=== PATIENT | male | born 1955 | race Caucasian/White ===

== ENCOUNTER → 2019-03-24 09:22 | Outpatient (CLI) | payer MEDICARE, BC ==
--- NOTE | ~2019-03-24 | ST ---
PATIENT:NITO COLEMAN MEDICAL RECORD: [id number] SEX: M LOCATION:[facility] ORDER #: ADMISSION DATE: 03/24/19 AGE OF PATIENT: 63 REFERRING PHYSICIAN: INTERPRETING PHYSICIAN: JOSEE ALVAREZ MD DATE OF SERVICE: 03/24/2019 Nuclear Stress Test INDICATIONS: Angina, abnormal ECG, shortness of breath, hypertension, and hyperlipidemia. He was exercised on standard Lexiscan protocol with 27 mCi of sestamibi injected at peak stress and 9 mCi was used previously for rest images. FINDINGS: Gated SPECT reveals a depressed ejection fraction at 39%. SPECT IMAGING: Cardiolite was used as myocardial fusion agent. There is reversibility laterally. This is in the basal, mid, apical, and lateral segments. The degree of reversibility is moderate to severe. The amount of myocardium involved is moderate. OVERALL IMPRESSION: This is an abnormal nuclear stress test and it falls in the intermediate high-risk category with a decreased ejection fraction at 39%, reversible ischemia, moderate to severe with a moderate amount of myocardium involved of the lateral wall. Because of a high likelihood of significant hemodynamically significant coronary artery disease, we would proceed with coronary angiography as a followup study. TRANSINT:[id number] Voice Confirmation ID: [id number] DOCUMENT ID: [id number] JOSEE ALVAREZ MD CC: [id number] DICTATION DATE: 03/25/1934 HOSPITAL NURSE LIAISON: 03/26/19 0123 [facility] CLI 03/24/19 [facility] [address] [place] [address]
== END | disposition home or self-care (01) ==
LOC: D.HCCARDIO 03-21 10:00
PROVIDERS: ATTEND Internal Medicine Interventional Cardiology
DX: I20.9 Angina pectoris, unspecified (principal)

== ENCOUNTER 2019-04-26 10:36 | Inpatient (IN) | payer MEDICARE, BC ==
[2019-04-26] VITALS (40 sets, daily range): BP systolic 93–165; BP diastolic 63–114; BMI 36.7; BMI 35.6
[~2019-04-26] VITALS: Ht 182.9 cm; Wt 116.2 kg
--- NOTE | ~2019-04-26 | HEMODYNAMI ---
PATIENT:NITO COLEMAN MEDICAL RECORD: [id number] : 51 LOCATION:[facility] ADMISSION DATE: 04/26/19 Generatedon:04/26/201914:07 Patient name: NITO COLEMAN Patient #: [id number] SSN: DO B: 1955 Date of study: 04/26/2019 Page: Of Hemodynamic Procedure Report Patient Data Patient Demographics Procedure consent was obtained First Name: NITO Gender: Male Last Name: [place] : 1955 Patient #: [id number] Age: 63 year(s) Race: Unknown Additional ID: [id number] Contact details Address: [address] [place] [address] [address] State: [place] City: [place] Zip code: [address] Past Medical History Allergies: No known allergies Admission Admission Data Admission Date: 04/26/2019 Admission Time: 10:36 Arrival Date: 04/26/2019 Arrival Time: 13:00 Admit Source: Other Insurance Payor: Medicare Height (in.): 71.65 BSA: 2.41 (m2) Height (cm.): 182 BMI: 36.83 (kg/m2) Weight (lbs.): 268.97 Weight (kg.): 122 Lab Results Lab Result Date: 04/26/2019 Lab Result Time: 0:00 Biochemistry Name Units Result Min Max BUN mg/dl 13 --(--*-)-- 7 18 Creatinine mg/dl 0.8 --(-*--)-- 0.6 1.3 CBC Name Units Result Min Max Hemoglobin g/dl 17.2 --(---*)-- 13.5 17.5 Procedure Procedure Types Cath Procedure Diagnostic Procedure C [facility] w/Coronaries Procedure Description Procedure Date Procedure Date: 04/26/2019 Procedure Start Time: 0:00 Procedure End Time: 13:58 Procedure Staff Name Function Louis Sr RT Scrub Aliyah Mi RT Monitor Scott Landaverde MD Performing Physician Cesar Horton RT Senior Technical Writer Jenna Lenin RN Nurse Procedure Data Cath Procedure Fluoroscopy Diagnostic fluoroscopy Total fluoroscopy Time: 1.6 time: 1.6 min min Diagnostic fluoroscopy Total fluoroscopy dose: 758 dose: 758 mGy mGy Contrast Material Contrast Material Type Amount (ml) Isovue 370 50 Entry Location Entry Primary Successful Side Size Upsize Upsize Entry Closure Terrazas ccessful Closure Location (Fr) 1 (Fr) 2 (Fr) Remarks Device Remarks Radial Right 6 Fr Mechanical artery Short Compression Estimated blood loss: 5 ml Diagnostic catheters Device Type Used For End Catheter Placement DIAGNOSTIC [place] 110cm 5 Multi-vessel Fr catheter ([id number]) Angiography Procedure Complications No complications Procedure Medications Medication Administration Route Dosage 0.9% NaCl I.V. 100 ml/hr Oxygen etCO2 Nasal cannula 2 l/min Lidocaine 2% added to field 20 Heparin Flush Bag added to field 2 bags (1000units/500ml NS) Radial Cocktail added to field 1 syringe (Verapamil 2mg/Nitro 400mcg/Heparin 1500units) Versed I.V. 2 mg Fentanyl I.V. 50 mcg Zofran I.V. 4 mg Hemodynamics Rest BSA: 2.41 (m2) HGB: 17.2 (g/dl) O2 Consumption: Estimated: 287.89 (ml/min) O2 Co nsumption indexed: Estimated:119.46 (ml/min/m) Heart Rate: 78 (bpm) Pressure Samples Time Site Value (mmHg) Purpose Heart Use Rate(bpm) 13:51 LV 132/11,10 Snapshot 86 13:51 LV 134/20,10 Snapshot 106 13:51 LV 124/21,17 Pullback 103 13:51 AO 161/161(142) Pullback 103 Gradients Valve Time Site 1 Site 2 Mean SEP/DFP Peak To Heart Use (mmHg) (sec/min) Peak Rate (mmHg) (bpm) Aortic 13:51 LV AO 0 103 124/21,17 161/161(142) Calculations Valve P-P Mean Valve Index Valve Source Name Gradient Area Flow (cm2) Aortic 0 0 Snapshots Pre Cath Intra NCS Post Cath Vital Signs Time Heart Resp SPO2 etCO2 NIBP (mmHg) Rhythm Pain Sedation Rate (ipm) (%) (mmHg) Status Level (bpm) 13:30:45 75 11 98 36.9 150/98(122) NSR 0 (11) 10(A) , No pain 13:35:03 70 14 96 35.4 141/98(126) NSR 0 (11) 10(A) , No pain 13:39:21 68 11 97 24.8 150/96(128) NSR 0 (11) 10(A) , No pain 13:43:44 75 13 98 36.9 153/106(129) NSR 0 (11) 10(A) , No pain 13:48:04 77 15 96 37.6 150/95(122) NSR 0 (11) 9(A) , No pain 13:52:15 84 14 97 33.1 139/97(115) NSR 0 (11) 9(A) , No pain 13:56:29 83 11 96 37.6 136/93(121) NSR 0 (11) 10(A) , No pain Medications Time Medication Route Dose Verified Delivered Reason Notes E ffectiveness by by 13:29:09 Zofran I.V. 4 mg Scott Jenna for nausea St Catracho Phelps MD RN 13:29:39 0.9% NaCl I.V. 100 Scott Jenna used for ml/hr Akhil Lenin procedure MD ADRIAN 13:29:47 Oxygen etCO2 2 l/min Scott Jenna used for Nasal Akhil Lenin procedure cannula MD ADRIAN 13:29:52 Lidocaine 2% added 20ml Scott Chavez for local to vial Akhil Akhil anesthetic field MD NGO 13:29:57 Heparin Flush added 2 bags Scott Chavez used for Bag to Raymond Akhil procedure (1000units/500ml field MD NGO NS) 13:30:05 Radial Cocktail added 1 Scott Chavez used for (Verapamil to syringe Akhil Akhil procedure 2mg/Nitro field MD NGO 400mcg/Hepari 13:43:38 Versed I.V. 2 mg Scott Jenna for AkhilCatracho Phelps sedation RN 13:43:50 Fentanyl I.V. 50 mcg Scott Salesyla for Akhil Lenin sedation recreation teacher Log Time Note 13:05:08 Diagnostic Cath Status : Elective 13:05:32 Cesar Horton RT(R) sent for patient. Start room use. 13:05:33 Time tracking: Regular hours (M-F 7:00 - 5:00) 13:05:37 Plan of Care:Hemodynamics will remain stable., Cardiac rhythm will remain stable., Comfort level will be maintained., Respiratory function will remain adequate., Patient/ family verbilizes understanding of procedure., Procedure tolerated without complication., Recovers from procedure without complications.. 13:07: Lab Result : Hemoglobin 17.2 g/dl : Lab Result : Creatinine 0.8 mg/dl : Lab Result : BUN 13 mg/dl 13:07:30 Admit Source: Other 13:07:35 Patient Height : 71.65 inches 13:07:39 Patient Weight : 268.97 lbs 13:07:49 Arrival Date: 04/26/2019 1:00:00 PM 13:07:55 Insurance Payor : Medicare 13:24:54 Signed procedure consent form obtained from patient. 13:25:26 Patient received from Pre/Post Procedure Room to CCL 2 Alert and oriented. Tansferred to table in Supine position. 13:25:27 Warm blankets applied, and clement hugger turned on for patient comfort. 13:25:28 ECG and BP/O2 sat monitors applied to patient. 13:25:28 Correct patient and procedure confirmed by team. 13:25:39 H&P Date Dictated: 04/12/2019 Within 30 days and on chart., H&P Addendum completed by physician on day of procedure. (MUST COMPLETE FOR ALL OUTPATIENTS). 13:25:55 Patient allergic to No known allergies 13:29:09 Zofran 4 mg I.V. was administered by Jenna Phelps RN; for nausea; 13:29:29 Vital chart was started 13:29:39 0.9% NaCl 100 ml/hr I.V. was administered by Jenna Phelps RN; used for procedure; 13:29:47 Oxygen 2 l/min etCO2 Nasal cannula was administered by Jenna Phelps RN; used for procedure; 13:29:52 Lidocaine 2% 20ml vial added to field was administered by Scott Landaverde MD; for local anesthetic; 13:29:57 Family in waiting room. 13:29:57 Heparin Flush Bag (1000units/500ml NS) 2 bags added to field was administered by Scott Landaverde MD; used for procedure; 13:29:59 Pre-procedure instructions explained to patient. 13:30:05 Pre-op teaching completed and patient verbalized understanding. 13:30:05 Radial Cocktail (Verapamil 2mg/Nitro 400mcg/Heparin 1500units) 1 syringe added to field was administered by Scott Landaverde MD; used for procedure; 13:30:12 Patient NPO since Midnight. 13:30:16 Is the patient allergic to Iodine/contrast media? No. 13:30:33 Is patient on blood thinner?No 13:30:46 ----Pre-sedation anethsthesia assessment.---- 13:32:56 Previous problem with sedation/anesthesia? No ? 13:32:58 Snore? Yes 13:32:59 Sleep apnea? No 13:33:00 Deviated septum? No 13:33:01 Sticks out tongue? Yes 13:33:01 Opens mouth fully? Yes 13:33:03 Airway obstruction? No ? 13:33:07 Dentures? Yes out 13:33:36 Pre procedure: right dorsailis pedis pulse 2+ Normal; easily identifiable; not easily obliterated 13:33:39 Pre procedure: left dorsailis pedis pulse 2+ Normal; easily identifiable; not easily obliterated 13:33:40 Patient pain scale 0/10 ?. 13:33:46 IV patent on arrival in left forearm with 0.9% NaCl at O. 13:33:48 Lab results completed and on chart. 13:42:16 Right Radial & Right Groin area was prepped with chlora-prep and draped in sterile fashion 13:42:17 Alarms reviewed by R. N. 13:42:18 Sharps counted by scrub and verified by R.N. 13:42:53 Physician arrived 13:42:54 Final Timeout: patient, procedure, and site verified with staff and physician. All members of the team are in agreement. 13:42:54 --------ALL STOP TIME OUT------ 13:42:58 Right Radial & Right Groin site verified by team. 13:43:02 Maximum allowable Isovue 370 dose 300ml. Physician notified. (300ml for normal creatinines. For patients with creatinine of 1.7 or higher multiply weight(kg) x 5 divided by creatinine.) 13:43:07 Fire Safety Assessment: A--An alcohol-based skin anteseptic being used preoperatively., C--Open oxygen or nitrous oxide is being used., D--An ESU, laser, or fiber-optic light is being used. 13:43:11 Physical assessment completed. ASA score P 2 - A patient with mild systemic disease as per Scott Landaverde MD. 13:43:14 Sedation plan: IV Moderate Sedation Medication:Versed, Fentanyl 13:43:38 Versed 2 mg I.V. was administered by Jenna Phelps RN; for sedation; 13:43:39 Use device set Radial Dx or PCI 13:43:41 Bag Decanter (2002S) opened to sterile field. 13:43:41 Medline Cath Pack ([id number]) opened to sterile field. 13:43:41 ACIST Syringe (27304) opened to sterile field. 13:43:42 ACIST Hand Control (12706) opened to sterile field. 13:43:42 DIAGNOSTIC WIRE .035 260cm J wire (009097) opened to sterile field. 13:43:43 Tegaderm 4 x 4 (1626W) opened to sterile field. 13:43:43 ACIST Manifold (82408) opened to sterile field. 13:43:44 MBrace Wrist Support ([id number]) opened to sterile field. 13:43:45 SHEATH 6FR Slender (68-3356) opened to sterile field. 13:43:50 Fentanyl 50 mcg I.V. was administered by Jenna Phelps RN; for sedation; 13:47:52 Full Disclosure recording started 13:47:52 Procedure started. 13:47:57 Local anesthetic to right radial artery with Lidocaine 2% by Scott Landaverde MD.INITIAL ACCESS ONLY 13:48:12 A 6 Fr Short sheath was inserted into the Right Radial artery 13:49:05 A DIAGNOSTIC [place] 110cm 5 Fr catheter (571700) was advanced over the wire and used for Multi-vessel Angiography. 13:49:11 Baseline sample Acquired. 13:49:16 Rhythm: sinus rhythm 13:51:23 LV hemodynamics recorded. 13:51:50 LV gram done using GALVAN 13:51:53 Injector settings: Ml/sec: 5, Volume: 15, 13:51:59 EF : 30 % 13:52:25 LCA angiography performed. 13:53:19 RCA angiography performed. 13:53:23 Injector settings: Ml/sec: 3, Volume: 6, 13:54:24 Catheter removed. 13:54:30 TR BAND Large ([id number]) opened to sterile field. 13:54:57 Sheath removed intact; hemostasis achieved with Mechanical Compression to the Right Radial artery. 13:55:45 Procedure ended.(Physican Out) 13:56:20 Fluoroscopy time 01.60 minutes. 13:56:24 Fluoroscopy dose: 758 mGy 13:56:24 Flurop Dose total: 758 13:56:28 Contrast amount:Isovue 370 50ml. 13:56:29 Sharps counted by scrub and verified by R.N. 13:56:36 TR band inflated with 12cc of air. 13:56:38 Insertion/operative site no bleeding no hematoma. 13:56:43 Post right radial artery:stable 13:56:46 Post Procedure Pulses reassessed and unchanged 13:56:49 Post procedure rhythm: unchanged. 13:56:51 Estimated blood loss: 5 ml 13:56:53 Patient needs reinforcement of post procedure teaching. 13:56:53 Post procedure instruction explained to patient.Patient verbalizes understanding. 13:56:59 Procedure and supply charges have been captured, reviewed, submitted and are correct. 13:57:04 Procedure Complication : No complications 13:58:06 Vital chart was stopped 13:58:07 See physician's report for complete and final results. 13:58:09 Report given to [facility]. 13:58:12 Patient transfered to [facility] with Stretcher. 13:58:15 Full Disclosure recording stopped 13:58:15 Procedure ended. 13:58:16 End room use (Document Last) Device Usage Item Name Manufacture Quantity Catalog Hospital Part Current Minimal Lot# / Number Charge Number Stock Stock Serial# Code ACIST Acist 1 24248 165781 102750 962022 20 Syringe Medical (04466) Systems Inc Medline Medline 1 [id number] 535263 95652 731163 5 Cath Pack ([id number]) Bag Microtek 1 147709 40140 516041 5 Decanter Medical Inc. () DIAGNOSTIC St Giovanni 1 274198 201082 464545 975490 30 WIRE .035 260cm J wire (966302) ACIST Hand Acist 1 75074 460761 276207 005592 5 Control Medical (72260) Systems Inc ACIST Acist 1 43901 630091 479012 519477 5 Manifold Medical (30480) Systems Inc Tegaderm 4 3M 1 1626W 186832 045967 667410 5 x 4 (1626W) MBrace Advanced 1 140-0250-00 736674 55743 785627 5 Wrist Vascular Support Dynamics ([id number]) SHEATH 6FR Terumo 1 [id number] 711278 750620 268167 5 Slender (80-1060) DIAGNOSTIC Terumo 1 40-7293 903765 081479 314145 5 [place] 110cm 5 Fr catheter (136132) TR BAND Terumo 1 [id number] 629880 663166 207300 40 Large (HAS15LHL) Signature Audit [place] Stage Time Signature Unsigned Intra-Procedure 04/26/2019 Aliyah Mi 2:07:01 PM RT(R) Signatures Monitor : Aliyah Mi RT Signature : Date : Time : [facility] [address] [facility] [place] [address]
[2019-04-26] MEDS ORDERED: VALIUM10 MG PO (10:50)
[2019-04-26] MEDS ORDERED: LOTREL 5/10 MG1 CAP PO (10:51)
[2019-04-26] MEDS ORDERED: PROTONIX40 MG PO (10:51)
[2019-04-26] MEDS ORDERED: STELARA SQ (10:53)
[2019-04-26] MEDS ORDERED: BETAPACE 80 MG80 MG PO (10:53)
[2019-04-26 11:24] LABS: BASOPHILS 0.4 % (0-2); EOSINOPHILS 4.2 % (0-7); HEMATOCRIT 49.5 % (42.0-54.0); HEMOGLOBIN 17.2 g/dL (13.5-17.5); IMMATURE GRANULOCYTES 0.5 % (0-5); LYMPHOCYTES 18.4 % (15-50); MCH 31.7 pg (26.0-34.0); MCHC 34.7 g/dL (31.0-37.0); MCV 91.2 fL (80.0-100.0); MEAN PLATELET VOLUME 10.6 fL (7.4-10.4); MONOCYTES 8.6 % (2-11); NEUTROPHILS 67.9 % (40-80); PLATELET COUNT 251 10x3/uL (130-400); RBC 5.43 10x6/uL (4.20-6.10); RDW 13.5 % (11.5-14.5); WBC 10.2 10x3/uL (4.8-10.8)
[2019-04-26 11:38] LABS: CALC OSMOLALITY 276 mosm/kg (275-300); CALCIUM 8.6 mg/dL (8.5-10.1); CARBON DIOXIDE 28.3 mmol/L (21.0-32.0); CHLORIDE - SERUM 102 mmol/L (98-107); CREATININE - SERUM 0.8 mg/dL (0.6-1.3); GLUCOSE 108 mg/dL (74-106); POTASSIUM - SERUM 4.5 mmol/L (3.5-5.1); SODIUM 138 mmol/L (136-145); UREA NITROGEN 13 mg/dL (7-18); eGFR NON AFRICAN AMERICAN > 90 mL/min (90-120)
--- NOTE | 2019-04-26 14:17 | NUR ---
PATIENT ARRIVED TO ROOM 5. PATIENT PUT ON CM, ON 2L NC. NO C/O PAIN, NUMBNESS, OR TINGLING. WILL CONTINUE TO MONITOR. PHYSICIAN PREVIOUSLY AT BEDSIDE TO UPDATE EX- WHO ACCOMPANIED PATIENT TODAY.
--- NOTE | 2019-04-26 14:30 | NUR ---
PATIENT AWAKE, DR. HERR AT BEDSIDE DISCUSSING SURGICAL OPTIONS WITH PATIENT AND EX-. ELEVATED BLOOD PRESSURE NOTED BY PHYSICIAN, WILL NOT TREAT AT THIS TIME. RIGHT TR BAND IN PLACE, NO S/S OF BLEEDING OR HEMATOMA NOTED. WILL CONTINUE TO MONITOR.
--- NOTE | 2019-04-26 14:59 | NUR ---
PT'S BP 165/104. NITRO (50MG/250ML) STARTED TO LEFT WRIST PIV AT 3CC/HR PER DR. HERR. PT TOLERATING WELL. FRIEND AT BEDSIDE. WAITING ON ROOM TO BE CLEANED AND PT MOVED TO [facility].
--- NOTE | 2019-04-26 15:00 | NUR ---
NEW PERIPHERAL 20G IV STARTED IN RIGHT FOREARM. RIGHT TR BAND IN PLACE, NO S/S OF BLEEDING OR HEMATOMA. CONTINUING TO MONITOR VITAL SIGNS, HR 76, NIBP 168/109, SPO2 98% ON 2L NC, RR OF 13.
--- NOTE | 2019-04-26 15:30 | NUR ---
PT ARRIVED IN THE UNIT. HOOKED TO ICU MONITORS. VSS AT THIS TIME. NITRO TITRATED PER ORDERS. TR BAND NOTED TO RIGHT RADIAL. NO S/SX OF HEMATOMA NOTED. CALL LIGHT IN REACH. WILL CONT POC.
[2019-04-26 16:08] LABS: BASOPHILS 0.4 % (0-2); EOSINOPHILS 3.8 % (0-7); HEMOGLOBIN 16.5 g/dL (13.5-17.5); IMMATURE GRANULOCYTES 0.4 % (0-5); LYMPHOCYTES 20.4 % (15-50); MCHC 33.7 g/dL (31.0-37.0); MCV 92.1 fL (80.0-100.0); MEAN PLATELET VOLUME 10.4 fL (7.4-10.4); MONOCYTES 7.9 % (2-11); NEUTROPHILS 67.1 % (40-80); PLATELET COUNT 216 10x3/uL (130-400); RBC 5.32 10x6/uL (4.20-6.10); RDW 13.5 % (11.5-14.5); WBC 10.4 10x3/uL (4.8-10.8)
[2019-04-26 16:21] LABS: INR 1.12 (0.85-1.17); PROTIME 13.9 SECONDS (11.6-15.0)
[2019-04-26 16:41] LABS: PHOSPHOROUS 2.6 mg/dL (2.5-4.9); T4 THYROXIN - FREE 0.97 ng/dL (0.76-1.46); THYROID STIMULATING HORMONE 1.67 uIU/mL (0.36-3.74); URIC ACID 6.8 mg/dL (2.6-7.2)
--- NOTE | 2019-04-26 16:48 | NUR ---
PT DENIES QUESTIONS, SIGNED CONSENTS FOR TOMORROWS PROCEDURE
[2019-04-26 17:33] LABS: ALBUMIN 3.4 g/dL (3.4-5.0); ALKALINE PHOSPHATASE 64 U/L (46-116); ALT (SGPT) 31 U/L (10-68); BILIRUBIN - TOTAL 0.56 mg/dL (0.2-1.3); CALC OSMOLALITY 278 mosm/kg (275-300); CALCIUM 8.3 mg/dL (8.5-10.1); CARBON DIOXIDE 25.5 mmol/L (21.0-32.0); CHLORIDE - SERUM 103 mmol/L (98-107); CREATININE - SERUM 0.7 mg/dL (0.6-1.3); GLUCOSE 94 mg/dL (74-106); POTASSIUM - SERUM 4.5 mmol/L (3.5-5.1); SODIUM 140 mmol/L (136-145); UREA NITROGEN 12 mg/dL (7-18); eGFR NON AFRICAN AMERICAN > 90 mL/min (90-120)
--- NOTE | 2019-04-26 18:45 | NUR ---
DR HERR CALLED AND NOTIFIED ABOUT CAROTID ULTRASOUND. NO N.O. WILL CONT POC.
--- NOTE | 2019-04-26 19:14 | NUR ---
BEDSIDE SHIFT REPORT GIVEN BY DEPARTING RN. AAOX4. 2L NC. LEFT WRIST PIV AND RT FA PIV INFUSING MD ORDERED MEDS PATENTLY. 1ST DEGREE HEART BLOCK NOTED.DENIES ANY NEEDS AT THIS TIME. USES URINAL WITHOUT DIFFICULTY. ASSESSMENT COMPLETE. SEE FLOWSHEET FOR DETAILS.
--- NOTE | 2019-04-26 19:39 | MORECARE ---
CASE MANAGEMENT DISCHARGE SUMMARY PATIENT: NITO COLEMAN UNIT: [id number] ADM DATE: 04/26/19 AGE: 63 : 53 SEX: M [facility] AUTHOR: CHEO CAMACHO PHYSICIAN: REFERRING PHYSICIAN: TRENT RIOJAS MD DATE OF SERVICE: 04/26/19 Discharge Plan Patient Name: NITO COLEMAN [facility] [facility] 1955 Planned Disposition: Home Anticipated Discharge Date: Discharge Date: Expected LOS: Initial Reviewer: [email or web address] Initial Review Date: 04/26/2019 Generated: 04/26/19 8:39 pm DCPIA - Discharge Planning Initial Assessment Updated by [email or web address]: Catherine Anguiano on 04/26/19 7:38 pm * Is the patient Alert and Oriented? Yes * How many steps to enter\exit or inside your home? * PCP [facility] * Pharmacy [facility] * Preadmission Environment Home Alone * ADLs Independent * Other Equipment B/P monitor Patient Name: NITO COLEMAN Page 10159 at 1939 All edits/amendments must be made on the electronic document DICTATION DATE: 04/26/191938 AUTOMATED LOGISTICS SPECIALIST: PONCHO 04/26/191938 RPT#: [id number] DC DATE: STATUS: ADM IN [facility] [address] [place] [address] END OF REPORT
--- NOTE | 2019-04-26 19:46 | MORECARE ---
CASE MANAGEMENT DISCHARGE SUMMARY PATIENT: NITO BONDS UNIT: [id number] ADM DATE: 04/26/19 AGE: 63 : 53 SEX: M ROOM/BED: D[facility] AUTHOR: JANICE,DOC PHYSICIAN: REFERRING PHYSICIAN: TRENT RIOJAS MD DATE OF SERVICE: 04/26/19 Discharge Plan Patient Name: NITO BONDS [facility] [facility] 1955 Planned Disposition: Home Anticipated Discharge Date: Discharge Date: Expected LOS: Initial Reviewer: [email or web address] Initial Review Date: 04/26/2019 Generated: 04/26/19 8:45 pm Comments DCP- Discharge Planning Updated by [email or web address]: Catherine Anguiano on 04/26/19 6:[address] Patient Name: NITO BONDS Admission Status: Elective Accout number: [id number] Admission Date: 04-26-2019 : 1955 Admission Diagnosis: Attending: TRENT RIOJAS Current LOS: 1 Anticipated DC Date: Planned Disposition: Home Primary Insurance: MEDICARE A & B Discharge Planning Comments: CM met with patient at bedside after explaining CM role and obtaining verbal consent. Patient lives at home alone and plans to return there upon discharge. CM discussed availability / needs of home health and medical equipment. Patient denies any discharge needs at this time. Patient states he will have his drive him home upon discharge. CM will continue to follow and assist as needed with discharge planning / needs. Patients Transporter: Catherine Anguiano DCPIA - Discharge Planning Initial Assessment Updated by [email or web address]: Catherine Anguiano on 04/26/19 7:40 pm * Is the patient Alert and Oriented? Yes * How many steps to enter\exit or inside your home? * PCP Yvonne [facility] [place] [facility] * Pharmacy [facility] * Preadmission Environment Home Alone * ADLs Independent * Other Equipment B/P monitor * List name and contact numbers for known caregivers / representatives who currently or will assist patient after discharge: Carrie Bonds - ex-- [phone] * Verbal permission to speak to the caregivers and representatives has been obtained from the patient. N/A * Community resources currently utilized None * Additional services required to return to the preadmission environment? No * Can the patient safely return to the preadmission environment? Yes * Has this patient been hospitalized within the prior 30 days at any hospital? No Last DP export: 04/26/19 6:39 p Patient Name: NITO BONDS Page 27637 at 1948 All edits/amendments must be made on the electronic document DICTATION DATE: 04/26/191944 SCREEN CUTTER AND TRIMMER: PONCHO 04/26/191944 RPT#: [id number] DC DATE: STATUS: ADM IN [facility] [address] [place] [address] END OF REPORT
--- NOTE | 2019-04-26 21:15 | NUR ---
PHONED DR. HERR TO VERIFY ORDERS. INFORMED OF PT HEADACHE OF 05/25. ORDERS RECEIVED, VERIFIED, AND READ BACK. SEE MAR FOR DETAILS.
--- NOTE | 2019-04-26 21:47 | NUR ---
HS MEDS GIVEN. PRN PAIN MED GIVEN. SEE MAR FOR DETAILS. FAMILY REMAINS AT BEDSIDE. ALL QUESTIONS ANSWERED.
--- NOTE | 2019-04-26 23:12 | NUR ---
REASSESSMENT COMPLETE. NO NEW CHANGES IN PT CONDITION. ASLEEP SHOWING NO SS OF DISTRESS. VSS. CONTINUING TO TITRATE NITRO DRIP. SEE DRIP FLOWSHEET FOR DETAILS. REPOSITIONS SELF. DENIES ANY PAIN OR NEEDS AT THIS TIME. SAFETY MEASURES IN PLACE. CBIR.
--- NOTE | 2019-04-26 23:58 | NUR ---
NITRO DRIP OFF: BP 135/81 SEE IV DRIP FLOWSHEET FOR FULL DETAILS.
[2019-04-27] VITALS (40 sets, daily range): BP systolic 90–165; BP diastolic 55–99; BMI 35.3
[2019-04-27 00:52] LABS: HEMATOCRIT 45.5 % (42.0-54.0); HEMOGLOBIN 15.3 g/dL (13.5-17.5); MCH 30.8 pg (26.0-34.0); MCHC 33.6 g/dL (31.0-37.0); MCV 91.5 fL (80.0-100.0); MEAN PLATELET VOLUME 10.7 fL (7.4-10.4); RBC 4.97 10x6/uL (4.20-6.10); RDW 13.6 % (11.5-14.5); WBC 10.3 10x3/uL (4.8-10.8)
--- NOTE | 2019-04-27 01:11 | NUR ---
ASLEEP SNORING SOFTLY. NO SS OF DISTRESS. VS REMAIN STABLE. SAFETY MEASURES IN PLACE. CBIR.
--- NOTE | 2019-04-27 03:36 | NUR ---
REASSESSMENT COMPLETE. NO CHANGES NOTED IN PT CONDITION. VSS.
--- NOTE | 2019-04-27 04:35 | NUR ---
HCG BATH GIVEN. LINENS CHANGED. TOLERATED WELL.
--- NOTE | 2019-04-27 17:34 | NUR ---
1535 PT ARRIVED TO ROOM SEDATED FROM SURGERY ETT SECURED AND PLACED ON VENT BY RT, R IJ CVL DRESSING CDI WITH AMIO,PLASMALYTE AND NITRO INFUSING, ZINACEF INITIATED, MIDSTERNAL AND SUBSTERNAL DRESSINGS CDI WITH SUBSTERNAL TPM DDD80, CTX2 20CM SUCTION NO AIR LEAK, BLOODY DRAINAGE, JESS DRAIN COMPRESSED WITH BLOODY DRAINAGE, L GROIN A LINE WITH DRESSING CDI, R RADIAL A LINE DRESSING CDI, BOTH ZEROED WITH GOOD WAVEFORM, CRITICORE MOLINA DRAINING YELLOW URINE, LEATHA/SCD ON LLE, COBAN GROIN TO ANKLE LLE, PULSES PALPABLE AND DOPPLERED 1645 L GROIN A LINE SHEATH REMOVED PER ORDERS FROM DR HERR, TIP INTACT, REMOVED PER PROTOCOL, PULSES DOPPLERED EASILY 1730 DR HERR NOTIFIED OF ABGS AFTER 15MIN ON 80% FIO2.
--- NOTE | 2019-04-27 19:00 | NUR ---
PT INTUBATED, CLEAR/DIMINISHED LUNG SOUNDS. SPO2 95 ON 40%. OPENS EYES, FOLLOWS SOME COMMANDS. HARD OF HEARING, SON HAS HEARING AIDS IN HIS POSSESSION, STATES HE WILL BRING THEM DURING THE NEXT VISITATION. S1S2 HEARD, PERIPHERAL PULSES PRESENT. CHEST DRSGS CDI, CT INTACT, JESS DRAIN INTACT AND COMPRESSED. HEELS BRIDGED. VSS, WILL CONTINUE 1:1 NURSING CARE.
[2019-04-27 20:35] LABS: APPEARANCE CLEAR (CLEAR); BILIRUBIN NEGATIVE (NEGATIVE); COLOR YELLOW (YELLOW); GLUCOSE NEGATIVE (NEGATIVE); KETONE SMALL mg/dL (NEGATIVE); NITRITE NEGATIVE (NEGATIVE); PROTEIN NEGATIVE (NEGATIVE); UROBILINOGEN NORMAL (NORMAL)
--- NOTE | 2019-04-27 21:00 | NUR ---
FAMILY AT BEDSIDE, UPDATE PROVIDED AND QUESTIONS ANSWERED. SON BROUGHT PT HEARING AIDS. HEARING AIDS PLACED ON PT. PT TEACHING PROVIDED ON VENT, RESTRATINTS, AND PAIN MEDICATION AT THIS TIME. VSS, CONTINUE 1:1 NURSING CARE.
--- NOTE | 2019-04-27 21:11 | NUR ---
ABG RESULTS AND UPDATE GIVEN TO DR. HERR, ORDERS REC'D TO EXTUBATE AND PLACE ON BIPAP, RT NOTIFIED.
--- NOTE | 2019-04-27 21:34 | NUR ---
PT EXTUBATED AT THIS TIME AND PLACED ON BIPAP AT 65%, SPO2 92. RESTRAINTS DISCONTINUED. ORAL CARE PROVIDED. PT REPOSITIONED FOR COMFORT. AOX4. VSS.
--- NOTE | 2019-04-27 22:00 | NUR ---
PT AGITATED THAT HIS HEARING AIDS WERE NOT IN POST OP WHILE HE WAS INTUBATED, MAKING COMMUNICATION DIFFICULT. EXPLAINED TO PT THAT HIS SON TOOK HIS HEARING AIDS AND DID NOT BRING THEM BACK UNTIL 2099.
[2019-04-28] VITALS (99 sets, daily range): BP systolic 112–170; BP diastolic 66–96
--- NOTE | 2019-04-28 01:30 | NUR ---
VSS, DANGLED AT BEDSIDE PER ORDERS. RT AT BEDSIDE. WEAK COUGH, WHILE UP AT BEDSIDE, PT BECAME SOB, SPO2 86. PT POSITIONED BACK IN BED, HOB @ 40 DEGREES, BIPAP ON AND AT 100%, ENCOURAGED TO DEEP BREATHE, SPO2 94.
--- NOTE | 2019-04-28 01:45 | NUR ---
BIPAP ON AT 70%, SPO2 92. LUNG SOUNDS CLEAR/DIMINISHED. PT REPOSITIONED FOR COMFORT. DENIES NEEDS. CALL LIGHT WITHIN PT REACH, ROOM VISIBLE FROM NURSES STATION.
--- NOTE | 2019-04-28 02:03 | NUR ---
PT C/O PAIN 06/25, REQUESTING PRN PERCOCET. AOX4, TOLERATES MEDS WELL. VSS, SPO2 93 AT THIS TIME.
--- NOTE | 2019-04-28 03:00 | NUR ---
REASSESSMENT COMPLETE, SEE FLOWSHEET. PT REPOSITIONED FOR COMFORT. RESTING COMFORTABLY AT THIS TIME. AOX4, DENIES NEEDS. CPOC
[2019-04-28 05:09] LABS: HEMATOCRIT 42.6 % (42.0-54.0); HEMOGLOBIN 14.3 g/dL (13.5-17.5); MCH 30.7 pg (26.0-34.0); MCHC 33.6 g/dL (31.0-37.0); MCV 91.4 fL (80.0-100.0); MEAN PLATELET VOLUME 10.9 fL (7.4-10.4); RBC 4.66 10x6/uL (4.20-6.10); RDW 13.9 % (11.5-14.5)
[2019-04-28 05:37] LABS: WBC 19.1 10x3/uL (4.8-10.8)
--- NOTE | 2019-04-28 06:00 | NUR ---
PT UP TO CHAIR, COMPLETE LINEN CHANGE PROVIDED. BIPAP ON AT 80%, SPO2 92. AOX4, STATES HE IS COMFORTABLE IN CHAIR AND HIS PAIN IS DECREASING. VSS. CALL LIGHT AND BEDSIDE TABLE WITHIN PT REACH. CPOC.
[2019-04-28 07:18] LABS: ALBUMIN 3.1 g/dL (3.4-5.0); ALKALINE PHOSPHATASE 43 U/L (46-116); ALT (SGPT) 30 U/L (10-68); BILIRUBIN - TOTAL 0.49 mg/dL (0.2-1.3); CALC OSMOLALITY 280 mosm/kg (275-300); CALCIUM 7.6 mg/dL (8.5-10.1); CARBON DIOXIDE 27.2 mmol/L (21.0-32.0); CHLORIDE - SERUM 104 mmol/L (98-107); CREATININE - SERUM 0.9 mg/dL (0.6-1.3); GLUCOSE 158 mg/dL (74-106); POTASSIUM - SERUM 4.3 mmol/L (3.5-5.1); PROTEIN - SERUM 6.1 g/dL (6.4-8.2); SODIUM 139 mmol/L (136-145); UREA NITROGEN 12 mg/dL (7-18); eGFR NON AFRICAN AMERICAN 90 mL/min (90-120)
--- NOTE | 2019-04-28 07:20 | NUR ---
CORNELIA RECEIVED. PT UP IN CHAIR. ASSESSMENT COMPLETE. PT ON BIPAP AT 80% AT THIS TIME. REQUESTED HIS LEFT HEARING AID PUT IN (ALREADY HAD RIGHT ONE IN).
--- NOTE | 2019-04-28 10:26 | OP ---
PATIENT NAME: NITO COLEMAN MEDICAL RECORD: [id number] :51 LOCATION:[facility] ADMISSION DATE:04/26/19 SURGEON: TRENT RIOJAS MD DATE OF OPERATION: 04/26/2019 PROCEDURE: Left heart catheterization, selective coronary angiography, right radial approach. CATHETERS: Radial sheath, [place] catheter. The procedure was well tolerated. The patient returned to [place]. Sheath removed. TR band was placed. FINDINGS: Left ventriculography in 30-degree GALVAN view shows global hypokinesis, EF reduced at 30% to 35%. CORONARY ANATOMY: LEFT MAIN: Left main has about an 80% tubular stenosis before takeoff of the LAD diagonal. LAD: The LAD appears to be good target distally. CIRCUMFLEX: Moderate-sized circumflex with good target distally. There is a PD that is totally occluded off the right coronary that may be a graftable vessel. The posterior lateral branch off the right coronary artery appears to be good target distally. IMPRESSION: Severe 3-vessel disease including left main disease, mildly decreased LV function, probably best suited for coronary bypass grafting at this point. TRANSINT:[id number] Voice Confirmation ID: [id number] DOCUMENT ID: [id number] TRENT RIOJAS MD at 1026 CC: [id number] DICTATION DATE: 04/26/19 1404 PROJECTS MANAGER: 04/26/19 1536 ADM IN [facility] [address] [place] [address]
--- NOTE | 2019-04-28 11:50 | OP ---
PATIENT NAME: NITO COLEMAN MEDICAL RECORD: [id number] :53 LOCATION:[facility] DM[facility] Isabel[facility]08 ADMISSION DATE:04/26/19 SURGEON: ANKUR HERR MD DATE OF OPERATION: 04/27/2019 SURGEON: Ankur Herr MD FLAT KNITTER: Zion [employer] PROCEDURES PERFORMED: 1. Urgent coronary artery bypass graft times 3 (left internal mammary to LAD, reverse saphenous vein graft from aorta to obtuse marginal and aorta to right coronary artery beyond bifurcation). 2. Pulmonary vein radiofrequency ablation. 3. Left atrial appendage closure device. PREOPERATIVE DISEASE: Coronary artery disease including left main coronary artery stenosis and atrial fibrillation. POSTOPERATIVE DIAGNOSIS: Coronary artery disease including left main coronary artery stenosis and atrial fibrillation. ANESTHESIA: General endotracheal anesthesia. ESTIMATED BLOOD LOSS: Total cardiopulmonary bypass with Cell Saver retransfusion. COMPLICATIONS: None. SPECIMENS: None. CONDITION: Stable. DISPOSITION: CV ICU. OPERATIVE FINDINGS: 1. Transesophageal echocardiography confirmed no significant valvular stenosis or insufficiency, left ventricular hypertrophy and normal left ventricular contractility. No change after separation from cardiopulmonary bypass. 2. Significant varicosities in the vein from the right mid and upper thigh harvested endoscopically. Therefore, bridging incisions were made in the lower leg with a good segment of vein used for the right graft and a short slightly varicose section used for the circumflex graft. 3. Good quality left internal mammary artery. 4. Large fatty heart. 5. Severe distal disease in all vessels with anastomosis essentially in the soft spot, but with plaque. 6. LAD 1.75 mm. 7. Obtuse marginal 1.75 mm. 8. Right coronary artery beyond the bifurcation 2.0 mm. 9. AtriCure radiofrequency ablation of the pulmonary veins and the right atrium, due to the large heart size, it was elected not to perform the interatrial portion of the procedure. 10. Application of a left atrial appendage closure device. OPERATIVE REPORT [id number] NITO COLEMAN INDICATIONS: Coronary artery disease with left main coronary stenosis and atrial fibrillation. OPERATIVE SUMMARY IN DETAIL: The patient was brought to the operating suite. General anesthesia obtained. The patient was prepped and draped. Greater saphenous vein was harvested in the right leg, first with endoscopic technique. Side branches were divided with electrocautery. The vessels ligated proximally and distally and removed. Side branches were tied and leakage sites were oversewn. Significant varicosities were encountered. Bridging incisions were then made to remove the vein from the remainder of the right lower extremity. Side branches were clipped. Vessel was ligated proximally and distally and removed. Side branches were tied or oversewn and thin sites were oversewn. Later, the leg was irrigated and closed in 2 layers. Median sternotomy incision was made. Subcutaneous tissue divided with electrocautery. The sternum was divided with a saw. Left hemisternum was elevated. Left pleural cavity was entered. Left internal mammary artery and vein was taken down as a pedicle graft. Sternal retractor was placed. Pericardium was opened. Heparin was given. The aorta was cannulated. Dual stage venous cannula was inserted. The internal mammary was clipped distally and made ready for anastomosis. An activated clotting time was appropriately elevated. The patient placed on cardiopulmonary bypass. Sites for distal anastomosis were selected. A pursestring incision was made in the right atrium and the radiofrequency ablation device was used for the right atrial portion of the radiofrequency ablation and the retrograde cardioplegia cannula inserted. Antegrade cardioplegic cannula was inserted. The patient's temperature was allowed to drift downward to 34 degrees. Crossclamp was placed and cardioplegia was given antegrade and retrograde. Antegrade cardioplegia was repeated at about 50 minutes during the cross-clamp time including down the completed vein grafts. The pulmonary veins were encircled on each side and a radiofrequency ablation was performed. The left atrial appendage was a widely based 50 mm appendage and it was occluded with the occlusion device. Distal anastomoses were then performed in standard technique. Proximal anastomosis with single cross-clamp technique. The cross clamp removed. Proximal and distal anastomotic sites inspected for bleeding. Atrial and ventricular pacing wires were placed. The patient was paced and fully rewarm weaned from cardiopulmonary and was stable. The patient was decannulated. The cannula sites were oversewn. Protamine was given. The graft lay appropriately. Thorough irrigation was undertaken. Hemostasis was ensured. Drains were placed in the mediastinum and left pleural cavity. The Pericardial fat was loosely reapproximated in the midline. The left chest was evacuated and irrigated. The internal mammary harvest site was inspected for bleeding. Sternum was closed with wires. Fascia for the subcutaneous tissue was closed. Skin was closed. Dermabond was placed. The needle and sponge counts reported correct. The patient was taken to ICU in stable condition. TRANSINT:[id number] Voice Confirmation ID: [id number] DOCUMENT ID: [id number] OPERATIVE REPORT [id number] NITO COLEMAN DANIEL W MD at 1150 CC: TRENT RIOJAS MD [id number] DICTATION DATE: 04/27/19 1602 BILLET HEATER: 04/28/19 0202 ADM IN [place] [id number] [place] [address]
--- NOTE | 2019-04-28 12:54 | NUR ---
PT STOOD UP AND LARGE PINK EGGCRATE CUSHION PLACED IN CHAIR FOR HIM TO SIT ON. HELPED HIM TO POSITION FOR COMFORT. REMOVED BIPAP MASK AND GAVE WATER. OFFERED JELLO, PT DECLINED. CALL LIGHT IN REACH.
--- NOTE | 2019-04-28 13:44 | NUR ---
PT BIPAP REMOVED. MEDICATIONS GIVEN. WATER OFFERED. ED AGAIN OFFERED, DECLINED SAYING WOULD WAIT A WHILE. HI-FLOW NC AT 15L STARTED BY Rick
--- NOTE | 2019-04-28 17:00 | NUR ---
PT CHEST TUBES HAVE BEEN PULLED. TPM WIRES COILED. DR HERR REQUESTS MOLINA CATHETER TO REMAIN AT THIS TIME.
--- NOTE | 2019-04-28 18:10 | NUR ---
LEG DRESSING REMOVED. NO DRESSING APPLIED SINCE NO DRAINAGE NOTED. LEATHA HOSE PLACED. CHG BATH PROVIDED. MOLINA CARE PROVIDED. PT ON BIPAP. HEARING AIDS PLACED IN CONTAINER ON BEDSIDE TABLE WITH PT LABEL.
--- NOTE | 2019-04-28 19:43 | NUR ---
BEDSIDE SHIFT REPORT GIVEN BY DEPARTING RN. PT LAYING IN BED ASLEEP. BIPAP ON. RT IJ NOTED AND INFUSING PATENTLY. AAOX4. PERRLA. ASSESSMENT COMPLETE. VSS ON NITRO DRIP. SEE TITRATION DRIP FLOWSHEET FOR DETAILS. SAFETY MEASURES IN PLACE. CBIR.
--- NOTE | 2019-04-28 19:55 | NUR ---
HS MEDS GIVEN. SWALLOWED WITHOUT DIFFICULTY.
--- NOTE | 2019-04-28 23:03 | NUR ---
USED CALL LIGHT TO ALERT NURSE. PT VERY ANXIOUS SAYING "I NEED SOMEONE TO EXPLAIN TO ME WHAT IN THE HELL IS GOING ON. I NEED TO TALK TO A DOCTOR. I NEED YOU TO TELL MY WHY THIS MASK IS ON MY FACE. I FEEL LIKE I AM BEING KIDNAPPED!! I'M JUST GLAD YA'LL DON'T HAVE ME HOG TIED ANYMORE!!!" ANSWERED ALL QUESTIONS. SIGN PLACED IN ROOM AND ON DOOR REGARDING PT HEARING DIFFICULTIES TO ALERT ALL STAFF WHO ENTER. TALKED WITH PT AT GREAT LENGTH OF TIME TO EASE ANXIETY. C/O PAIN 05/25. ASSESSMENT COMPLETE. CBIR. SEE MAR AND ASSESSMENT FLOWSHEET FOR DETAILS.
[2019-04-29] VITALS (64 sets, daily range): BP systolic 107–157; BP diastolic 70–98
--- NOTE | 2019-04-29 00:15 | NUR ---
ALERTED NURSE USING CALL LIGHT. REQUESTED FAN. ACCOMMODATED. FSBG COMPLETE. SEE FLOWSHEET FOR DETAILS.
[2019-04-29 00:36] LABS: HEMATOCRIT 37.5 % (42.0-54.0); HEMOGLOBIN 12.7 g/dL (13.5-17.5); MCH 31.6 pg (26.0-34.0); MCHC 33.9 g/dL (31.0-37.0); MCV 93.3 fL (80.0-100.0); MEAN PLATELET VOLUME 10.3 fL (7.4-10.4); RBC 4.02 10x6/uL (4.20-6.10); WBC 16.9 10x3/uL (4.8-10.8)
--- NOTE | 2019-04-29 03:15 | NUR ---
REASSESSMENT COMPLETE. NO NEW CHANGES IN PT CONDITION. ASLEEP SHOWING NO SS OF DISTRESS.
[2019-04-29 04:42] LABS: BASOPHILS 0.1 % (0-2); EOSINOPHILS 0.1 % (0-7); HEMATOCRIT 38.7 % (42.0-54.0); HEMOGLOBIN 12.9 g/dL (13.5-17.5); IMMATURE GRANULOCYTES 0.6 % (0-5); LYMPHOCYTES 8.2 % (15-50); MCHC 33.3 g/dL (31.0-37.0); MEAN PLATELET VOLUME 10.8 fL (7.4-10.4); MONOCYTES 12.5 % (2-11); NEUTROPHILS 78.5 % (40-80); PLATELET COUNT 136 10x3/uL (130-400); RBC 4.16 10x6/uL (4.20-6.10); RDW 14.2 % (11.5-14.5); WBC 18.7 10x3/uL (4.8-10.8)
--- NOTE | 2019-04-29 04:51 | NUR ---
PRN PAIN MED GIVEN. SEE MAR FOR DETAILS.
[2019-04-29 05:07] LABS: ALBUMIN 2.8 g/dL (3.4-5.0); ALKALINE PHOSPHATASE 41 U/L (46-116); ALT (SGPT) 28 U/L (10-68); BILIRUBIN - TOTAL 0.89 mg/dL (0.2-1.3); CALC OSMOLALITY 276 mosm/kg (275-300); CALCIUM 7.7 mg/dL (8.5-10.1); CARBON DIOXIDE 29.2 mmol/L (21.0-32.0); CHLORIDE - SERUM 102 mmol/L (98-107); CREATININE - SERUM 0.7 mg/dL (0.6-1.3); GLUCOSE 142 mg/dL (74-106); MAGNESIUM - SERUM 1.9 mg/dL (1.8-2.4); PHOSPHOROUS 1.8 mg/dL (2.5-4.9); POTASSIUM - SERUM 4.4 mmol/L (3.5-5.1); PROTEIN - SERUM 5.9 g/dL (6.4-8.2); SODIUM 138 mmol/L (136-145); UREA NITROGEN 11 mg/dL (7-18); eGFR NON AFRICAN AMERICAN > 90 mL/min (90-120)
--- NOTE | 2019-04-29 09:40 | TEE ---
PATIENT:NITO COLEMAN MEDICAL RECORD: [id number] LOCATION:[place] [address] AGE OF PATIENT: 63 ADMISSION DATE: 04/26/19 SEX: M REFERRING PHYSICIAN: INTERPRETING PHYSICIAN: JOSEE ALVAREZ MD TRANSESOPHAGEAL ECHOCARDIOGRAM Date: 04/27/19 MARIPOSA CHARGE Y INDICATIONS: CABG PREMEDICATIONS: PATIENT'S RESPONSE PROCEDURE DOPPLER MEASUREMENTS: LVIT LA PA RA LVOT RVOT Asc. 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 Brown Contractor General Engineering: Addis AGRAWAL COMMENTS: DATE OF SERVICE: 04/27/2019 PROCEDURE: Transesophageal echo evaluation of valvular structures during bypass surgery. FINDINGS: 1. Left ventricular chamber size is within normal limits. Left ventricular systolic function is normal. Overall ejection fraction estimated at 55% to 60%. 2. Left atrium, right atrium, and right ventricle chamber sizes are within TRANSESOPHAGEAL ECHOCARDIOGRAM REPORT [id number] NITO COLEMAN normal limits. 3. Valvular structures have normal structure and motion. 4. Doppler interrogation reveals no significant valvular insufficiency or stenosis. 5. No evidence of pericardial effusion or left ventricular thrombus. TRANSINT:[id number] Voice Confirmation ID: [id number] DOCUMENT ID: [id number] at 0940 CC: [id number] DICTATION DATE: 04/27/19 1551 FAMILY LIFE COUNSELOR: 04/28/19 1007 ADM IN [place] [id number] [place] [address]
--- NOTE | 2019-04-29 12:08 | NUR ---
NUTRITION F/U PT TOLERATING CLEAR LIQUID DIET. PER NURSING PT DOES NOT WANT TO ADVANCE DIET TO REG YET. WILL MONITOR PT PROGRESS, DIET ADVANCEMENT. RD FOLLOWING
--- NOTE | 2019-04-29 13:08 | NUR ---
MOLINA CATHETER REMOVED, TIP INTACT. IV LINES FLUSHED AND SALINE LOCKED PER DR HERR REQUEST. JESS DRAIN EMPTIED OF 60ML BLOODY DRAINAGE.
--- NOTE | 2019-04-29 18:50 | NUR ---
PAIN MEDICATION PROVIDED TO PATIENT. ASSISTED WITH CHG BATH WITH WIPES. ALL NEW LINENS. PT ASSISTED TO BED TO PREPARE FOR BIPAP. HEARING AIDS REMOVED AND PLACED IN CANISTER AT BEDSIDE. URINAL AND CALL LIGHT IN REACH.
--- NOTE | 2019-04-29 19:50 | NUR ---
SHIFT ASSESSMENT COMPLETED - SEE FLOWSHEET PATIENT RESTING COMFORTABLY IN BED ON BIPAP 70% - DENIES NEEDS AT THIS TIME. VSS CPOC
--- NOTE | 2019-04-29 21:16 | NUR ---
PATIENT REMOVED FROM BIPAP AND PLACED ON HIGHFLOW NASAL CANNULA @ 7L. NIGHTTIME MEDICATIONS RECEIVED AND TOLERATED WELL, SMALL SIPS OF WATER WITH MEDICATIONS. PATIENT PLACED BACK ON BIPAP AND POSITIONED FOR COMFORT VSS CPOC
--- NOTE | 2019-04-29 23:20 | NUR ---
REASSESSMENT COMPLETED SEE FLOWSHEET
[2019-04-30] VITALS (25 sets, daily range): BP systolic 109–150; BP diastolic 63–89; Ht 182.9 cm; Wt 116.2 kg
--- NOTE | 2019-04-30 01:15 | NUR ---
CENTRAL LINE LUMENS FLUSHED AND LOCKED WITH 10CC NORMAL SALINE
--- NOTE | 2019-04-30 03:15 | NUR ---
REASSESSMENT COMPLETED SEE FLOWSHEET
--- NOTE | 2019-04-30 03:18 | NUR ---
PATIENT REQUESTING PRN PAIN MEDICATION, SEE EMAR FOR ADMINISTRATION - REASSESSMENT COMPLETED SEE FLOWSHEET
[2019-04-30 06:12] LABS: HEMATOCRIT 37.5 % (42.0-54.0); HEMOGLOBIN 12.2 g/dL (13.5-17.5); MCH 30.7 pg (26.0-34.0); MCHC 32.5 g/dL (31.0-37.0); MCV 94.5 fL (80.0-100.0); MEAN PLATELET VOLUME 10.4 fL (7.4-10.4); RBC 3.97 10x6/uL (4.20-6.10); RDW 14.5 % (11.5-14.5)
--- NOTE | 2019-04-30 06:23 | NUR ---
PATIENT RESTING COMFORTABLY EVEN RISE AND FALL OF CHEST, ON BIPAP AT THIS TIME. VSS CPOC
[2019-04-30 06:31] LABS: ALBUMIN 2.4 g/dL (3.4-5.0); ALKALINE PHOSPHATASE 39 U/L (46-116); ALT (SGPT) 25 U/L (10-68); BILIRUBIN - TOTAL 0.66 mg/dL (0.2-1.3); CALC OSMOLALITY 278 mosm/kg (275-300); CARBON DIOXIDE 32.1 mmol/L (21.0-32.0); CHLORIDE - SERUM 104 mmol/L (98-107); CREATININE - SERUM 0.7 mg/dL (0.6-1.3); GLUCOSE 118 mg/dL (74-106); POTASSIUM - SERUM 4.3 mmol/L (3.5-5.1); PROTEIN - SERUM 5.9 g/dL (6.4-8.2); SODIUM 139 mmol/L (136-145); UREA NITROGEN 12 mg/dL (7-18); eGFR NON AFRICAN AMERICAN > 90 mL/min (90-120)
--- NOTE | 2019-04-30 07:20 | NUR ---
AWAKES EASILY TO VERBAL STIMULI SKIN WARM AND DRY. MONITOR SR. CHEST AND SUBSTERANL DRESSING DRY AND INTACT. JESS DRAIN SERSANG DRAINAGE IN COMPRESSED BULB. VOIDING CLEAR OSEAS URINE.INCENTIVE SPIROMETRY TO 750 ML ENCOURAGE TO USE EACH COMMERICAL ON TV. VERBALIZE UNDERSTANDING. COUGHING AND DEEP BREATHING.
--- NOTE | 2019-04-30 08:00 | NUR ---
BREAKFAST SERVED. ATE PART OF HIS EGGS. NO APPETITE. REVIEWED MENU WITH PATIENT
--- NOTE | 2019-04-30 09:15 | NUR ---
AMBULATED IN AMAYA WITH PHYSICAL THERAPY. TOLERATED FAIR
--- NOTE | 2019-04-30 10:37 | NUR ---
SITTING UP IN CHAIR NAPPING AT INTERVALS NO DISTRESS. USING INCENTIVE. OXYGEN AT 3 LITERS PER HIGH FLOW
--- NOTE | 2019-04-30 11:30 | NUR ---
LUNCH SERVED ATE HALF OF MASH POTATOES AND ATE PIE. DR. HERR HERE ORDERS NOTED
--- NOTE | 2019-04-30 13:30 | NUR ---
COMPLETE HIBCLENS BATH GIVEN. PATIENT TOLERATED WELL. SUBSTERNAL DRESSING CHANGE. SITE CLEAN WITH BETADINE. BIOPATCH APPLIED AROUND PACER WIRES. COVER WITH 4X4 SECURE WITH TEGRADERM. PATIENT TOLERATED. NO REDNESS OR DRAINAGE FROM INCISIONS. LEGS INCISIONS INTACT. NO REDNESS OR DRAINAGE NOTED.
--- NOTE | 2019-04-30 14:15 | NUR ---
AMBULATED DOWN AMAYA PER PHYSICAL THERAPY. SOME SHORTNESS OF BREATH WHEN RETURNED TO ROOM.
--- NOTE | 2019-04-30 15:24 | NUR ---
AMBULATED TO BATHROOM. SHUFFLES WHEN AMBULATING.
--- NOTE | 2019-04-30 19:10 | NUR ---
RECEIVED PATIENT CARE SHIFT ASSESSMENT COMPLETED AT THIS TIME. CENTRAL LINE LUMENS FLUSHED AND ABX THERAPY INITIATED PER ORDER FROM DR. JOHN AND REPORT FROM OFF GOING NURSE. PATIENT SAYS PAIN IS INCREASING DUE TO COUGH. PRODUCTIVE WEAK COUGH NOTED - SPUTUM THICK AND YELLOW. INCENTIVE SPIROMETRY PERFORMED AT THIS TIME. WEAK EFFORT PULLED 800. SHIFT ASSESSMENT COMPLETED SEE FLOWSHEET. VSS CPOC
--- NOTE | 2019-04-30 20:09 | NUR ---
PATIENT HAS FAMILY AT BEDSIDE AT THIS TIME, DENIES NEEDS
--- NOTE | 2019-04-30 21:20 | NUR ---
HS MEDICATIONS RECEIVED AT THIS TIME, ENCOURAGED COUGH DEEP BREATHE, IS PERFORMED 800 - WEAK COUGH FOLLOWING THERAPY. SMALL AMOUNT OF THICK YELLOW SPUTUM NOTED.
--- NOTE | 2019-04-30 23:15 | NUR ---
PLACED PATIENT ON BIPAP PER REQUEST, PATIENT C/O BACK BURNING AND ITCHING, SAID "MY EX GAVE ME A BATH WITH THAT LOTION AND I HAVE BEEN BURNING EVER SINCE" UPON INSPECTION BACK IS WARM TO TOUCH, LARGE RED SPLOTCHY AREAS NOTED. RINSED PATIENT'S BACK WITH COOL WET WASHCLOTH. DRIED AND STRAIGHTENED LINENS. MINIMAL ASSISTED PATIENT FOR REPOSITIONING. REASSESSMENT COMPLETED SEE FLOWSHEET
[2019-05-01] VITALS (25 sets, daily range): BP systolic 100–147; BP diastolic 62–98
--- NOTE | 2019-05-01 02:04 | NUR ---
ABX MEDICATION UNAVAILABLE AT THIST TIME WILL INITIATE ONCE AVAILABLE
--- NOTE | 2019-05-01 02:10 | NUR ---
patient requested prn medication for pain - see emar for pain scale and administration
--- NOTE | 2019-05-01 06:45 | NUR ---
PT OOB TO CHAIR, DENIES NEEDS VSS CPOC
[2019-05-01 07:17] LABS: HEMATOCRIT 37.3 % (42.0-54.0); HEMOGLOBIN 12.3 g/dL (13.5-17.5); MCH 30.8 pg (26.0-34.0); MCV 93.5 fL (80.0-100.0); MEAN PLATELET VOLUME 10.4 fL (7.4-10.4); RBC 3.99 10x6/uL (4.20-6.10); RDW 14.2 % (11.5-14.5); WBC 11.7 10x3/uL (4.8-10.8)
[2019-05-01 07:31] LABS: ALBUMIN 2.4 g/dL (3.4-5.0); ALKALINE PHOSPHATASE 51 U/L (46-116); ALT (SGPT) 25 U/L (10-68); BILIRUBIN - TOTAL 0.82 mg/dL (0.2-1.3); CALC OSMOLALITY 278 mosm/kg (275-300); CARBON DIOXIDE 29.6 mmol/L (21.0-32.0); CHLORIDE - SERUM 102 mmol/L (98-107); CREATININE - SERUM 0.7 mg/dL (0.6-1.3); GLUCOSE 106 mg/dL (74-106); POTASSIUM - SERUM 3.7 mmol/L (3.5-5.1); PROTEIN - SERUM 6.3 g/dL (6.4-8.2); SODIUM 139 mmol/L (136-145); UREA NITROGEN 14 mg/dL (7-18); eGFR NON AFRICAN AMERICAN > 90 mL/min (90-120)
--- NOTE | 2019-05-01 10:10 | NUR ---
IV STARTED IN R FOREARM WITH 20G ON 1ST ATTEMPT.
--- NOTE | 2019-05-01 14:00 | NUR ---
R IJ DC'D. MANUAL PRESSURE HELD X 3 MIN. SITE DRESSED WITH 2X2 AND TEGADERM.
--- NOTE | 2019-05-01 19:00 | NUR ---
REPORT RECEIVED, SHIFT ASSESSMENT COMPLETE PER FLOW SHEET, PT AAOx4, [place] HAS HEARING AIDS AT BEDSIDE, ABX INFUSING VIA RT FA PIV, ALL DRSG'S C/D/I, SUBSTERNAL JESS DRAIN COMPRESSED, TPM WIRES COILED, RLE HARVEST SITES WELL APROXIMATED C/D/I BLESSING, LEATHA HOSE AND NONSLIP SOCKS ON BILAT LOWER EXTREMITIES, VSS, CALL LIGHT IN REACH, FALL PREVENTION REVIEWED WITH PT
--- NOTE | 2019-05-01 23:00 | NUR ---
REASSESSMENT COMPLETE SEE FLOW SHEET, PT RESTING WITH EYES CLOSED, WAKES EASY WITH MINIMAL STIMULI, REPOSITIONED FOR COMFORT, VSS, WILL CONTINUE TO MONITOR
[2019-05-02] VITALS (26 sets, daily range): BP systolic 109–159; BP diastolic 63–103
--- NOTE | 2019-05-02 02:23 | NUR ---
PT C/O INCISIONAL PAIN S/P MOVEMENT AND COUGHING, PRN PAIN MED GIVEN PER MAR/ORDERS, VSS
[2019-05-02 05:36] LABS: HEMATOCRIT 36.7 % (42.0-54.0); HEMOGLOBIN 12.4 g/dL (13.5-17.5); MCH 30.8 pg (26.0-34.0); MCHC 33.8 g/dL (31.0-37.0); MEAN PLATELET VOLUME 10.1 fL (7.4-10.4); RBC 4.02 10x6/uL (4.20-6.10); RDW 14.2 % (11.5-14.5); WBC 10.3 10x3/uL (4.8-10.8)
[2019-05-02 06:05] LABS: ALBUMIN 2.2 g/dL (3.4-5.0); ALKALINE PHOSPHATASE 46 U/L (46-116); ALT (SGPT) 28 U/L (10-68); BILIRUBIN - TOTAL 0.71 mg/dL (0.2-1.3); CALC OSMOLALITY 277 mosm/kg (275-300); CALCIUM 7.8 mg/dL (8.5-10.1); CARBON DIOXIDE 28.5 mmol/L (21.0-32.0); CHLORIDE - SERUM 103 mmol/L (98-107); CREATININE - SERUM 0.7 mg/dL (0.6-1.3); GLUCOSE 110 mg/dL (74-106); POTASSIUM - SERUM 3.6 mmol/L (3.5-5.1); SODIUM 138 mmol/L (136-145); UREA NITROGEN 16 mg/dL (7-18); VANCOMYCIN - TROUGH 4.2 ug/mL (10.0-20.0); eGFR NON AFRICAN AMERICAN > 90 mL/min (90-120)
[2019-05-02 06:10] LABS: MCV 91.3 fL (80.0-100.0)
--- NOTE | 2019-05-02 08:58 | NUR ---
0700 PT RECIEVED UP IN CHAIR ALERT AND ORIENTED ON ROOM AIR VSS DENIES PAIN MIDSTERNAL AND SUBSTERNAL DRESSING CDI WITH SUBSTERNAL TPM WIRES COILED AND L JESS DRAIN COMPRESSED WITH SEROSANG DRAINAGE, RFA PIV SL, RLE HARVEST SITES CDI, STATES RASH ON BACK IS FROM CHG BATH 0800 ATE 50% BREAKFAST 0900 AWAITING ASA FROM PHARMACY, SPOKE WITH ZACHARY, HOLDING LOVENOX UNTIL PT SEEN BY DR SANDERS PER ASHELY RN DUE TO POSSIBLE PPM PLACEMENT
--- NOTE | 2019-05-02 09:02 | NUR ---
0700 PT RECIEVED UP IN CHAIR ALERT AND OREINTED VSS DENIES PAIN ON ROOM AIR MIDSTERNAL AND SUBSTERNAL DRESSINGS CDI WITH SUBSTERNAL TPM WIRES COILED AND JESS DRAIN COMPRESSED WITH SEROSANG DRAINAGE, RFA PIV SL, RLE HARVEST SITES CDI, CONTINENT, NO BM BUT IS PASSING GAS, STATES RASH ON BACK DUE TO CHG BATH 0900 ATE 50% BREAKFAST AND TOOK AM MEDS WITHOUT DIFFICULTY
--- NOTE | 2019-05-02 11:06 | NUR ---
Nutrition follow up Diet advanced to regular Pt eating 43% average based on available documentation Pt reports eating good yesterday and as well as he does at home Pt not able to eat breakfast this morning due to nausea however plans to eat 100% of lunch Encouraged good po intake to help pt maintain strength RD following per protocol
--- NOTE | 2019-05-02 18:15 | MORECARE ---
CASE MANAGEMENT DISCHARGE SUMMARY PATIENT: NITO BONDS UNIT: [id number] ADM DATE: 04/26/19 AGE: 63 : [birth year] SEX: M [facility] AUTHOR: JANICE,DOC PHYSICIAN: REFERRING PHYSICIAN: TRENT RIOJAS MD DATE OF SERVICE: 05/02/19 Discharge Plan Patient Name: NITO BONDS Facility: [facility]:[place] : 1955 Planned Disposition: Home Anticipated Discharge Date: Discharge Date: Expected LOS: Initial Reviewer: [email or web address] Initial Review Date: 04/26/2019 Generated: 05/02/19 7:15 pm Comments DCP- Discharge Planning Updated by [email or web address]: Catherine Anguiano on 05/02/19 5:[address] CM EXPLAINED AND SERVED D/C IMM 05/02/19 @ 1800. PATIENT IS CURRENTLY SITTING UP IN CHAIR ON RA WITH 02 SAT 97%. DENIES ANY DISCHARGE NEEDS. CM will continue to follow and assist as needed with discharge planning / needs. DCP- Discharge Planning Updated by [email or web address]: Catherine Anguiano on 04/26/19 6:[address] Patient Name: NITO BONDS Admission Status: Elective Accout number: [id number] Admission Date: 04-26-2019 : 1955 Admission Diagnosis: Attending: TRENT RIOJAS Current LOS: 1 Anticipated DC Date: Planned Disposition: Home Primary Insurance: MEDICARE A & B Discharge Planning Comments: CM met with patient at bedside after explaining CM role and obtaining verbal consent. Patient lives at home alone and plans to return there upon discharge. CM discussed availability / needs of home health and medical equipment. Patient denies any discharge needs at this time. Patient states he will have his drive him home upon discharge. CM will continue to follow and assist as needed with discharge planning / needs. Workers Compensation Paralegal: Catherine Anguiano DCPIA - Discharge Planning Initial Assessment Updated by [email or web address]: Catherine Anguiano on 04/26/19 7:40 pm * Is the patient Alert and Oriented? Yes * How many steps to enter\exit or inside your home? * PCP Yvonne Hadley [facility] * Pharmacy [facility] * Preadmission Environment Home Alone * ADLs Independent * Other Equipment B/P monitor * List name and contact numbers for known caregivers / representatives who currently or will assist patient after discharge: Carrie Bonds - ex-- [phone] * Verbal permission to speak to the caregivers and representatives has been obtained from the patient. N/A * Community resources currently utilized None * Additional services required to return to the preadmission environment? No * Can the patient safely return to the preadmission environment? Yes * Has this patient been hospitalized within the prior 30 days at any hospital? No Coverage Notice Reviewer: [id number] Leonie Anguiano Notice Issued Date-Time: 05/02/2019 18:03 Notice Type: IM Discharge Notice Notice Delivered To: Patient Relationship to Patient: Self Stave Inspector Name: Delivery Method: HAND - Hand Delivered Rowena Days: Prior Verbal Notification: Recipient Understood Notice: Yes Recipient Signature: Yes Med Rec Note Co-signed by Attending: Coverage Notice Comment: Last DP export: 04/26/19 6:46 p Patient Name: NITO BONDS Page [id number] at 1815 All edits/amendments must be made on the electronic document DICTATION DATE: 05/02/191813 CARD DEALER: PONCHO 05/02/191813 RPT#: [id number] DC DATE: STATUS: ADM IN [facility] [address] [place] [address] END OF REPORT
--- NOTE | 2019-05-02 18:40 | NUR ---
1100 ATE 75% LUNCH 1300 BATH GIVEN 1700 ATE 100% DINNER
--- NOTE | 2019-05-02 19:10 | NUR ---
BEDSIDE SHIFT REPORT GIVEN BY DEPARTING RN. PT OOB IN CHAIR WATCHING TV. ASSISTED TO BATHROOM. ONE VOID NOTED. AAOX4. PERRLA. RT FA PATENT AND SALINE LOCKED. ASSESSMENT COMPLETE. JESS DRAIN NOTED. VSS. SAFETY MEASURES IN PLACE. CBIR. WILL CONTINUE TO MONITOR,
--- NOTE | 2019-05-02 20:12 | NUR ---
BACK TO BED FROM CHAIR USING STANDBY ASSIST. TOLERATED WELL.
--- NOTE | 2019-05-02 21:32 | NUR ---
HS MEDS GIVEN. TOLERATED WELL.
--- NOTE | 2019-05-02 22:44 | NUR ---
PRN PAIN MED GIVEN. SEE MAR FOR DETAILS.
--- NOTE | 2019-05-02 23:34 | NUR ---
REASSESSMENT COMPLETE. NO NEW CHANGES IN PT CONDITION. BIPAP ON WITH 21% O2. VSS. SEE FLOWSHEET FOR DETAILS.
[2019-05-03] VITALS (15 sets, daily range): BP systolic 116–189; BP diastolic 60–97
--- NOTE | 2019-05-03 07:00 | NUR ---
REPORT RECEVIED FROM THE OFF GOING RN. SEE ASSESSMENT IN THE PTS FLOW SHEET. PT SITTING IN BED. PT HTN. PO MEDS WILL BE GIVEN EARLY INCLUDING AM BP MEDS. PT C/O BEING ANXIOUS. REQUESTED SHEUDUALED VALIUM. "I DIDNT TAKE IT YESTERDAY AND I WOULD LIKE TO TAKE IT TODAY.". IT WAS INCLUDED. PT VSS. CALL LIGHT IN REACH. WILL CONT POC.
--- NOTE | 2019-05-03 07:30 | NUR ---
PT HTN. AM MEDS INCLUDING BP MEDICATION GIVEN EARLY. DR HERR NOTIFIED.
--- NOTE | 2019-05-03 07:51 | NUR ---
DR HERR IN THE UNIT. ORDERS FOR STAT CBC, CMP AND PA AND LAT CXR.
--- NOTE | 2019-05-03 08:11 | NUR ---
PT WENT DOWN TO VIA FOR A PA AND LAT XRAY.
--- NOTE | 2019-05-03 08:23 | NUR ---
BACK BACK IN THE UNIT AND HOOKED TO ICU MONITORS. VSS CALL LIGHT IN REACH.
[2019-05-03 08:56] LABS: BASOPHILS 0.3 % (0-2); EOSINOPHILS 6.1 % (0-7); HEMATOCRIT 40.1 % (42.0-54.0); HEMOGLOBIN 13.7 g/dL (13.5-17.5); IMMATURE GRANULOCYTES 1.4 % (0-5); LYMPHOCYTES 11.2 % (15-50); MCHC 34.2 g/dL (31.0-37.0); MCV 90.7 fL (80.0-100.0); MEAN PLATELET VOLUME 10.2 fL (7.4-10.4); MONOCYTES 7.4 % (2-11); NEUTROPHILS 73.6 % (40-80); RBC 4.42 10x6/uL (4.20-6.10); WBC 10.8 10x3/uL (4.8-10.8)
[2019-05-03 08:57] LABS: PLATELET COUNT 263 10x3/uL (130-400)
[2019-05-03 09:16] LABS: ALBUMIN 2.7 g/dL (3.4-5.0); ALKALINE PHOSPHATASE 60 U/L (46-116); ALT (SGPT) 35 U/L (10-68); BILIRUBIN - TOTAL 0.87 mg/dL (0.2-1.3); CALC OSMOLALITY 271 mosm/kg (275-300); CALCIUM 8.7 mg/dL (8.5-10.1); CHLORIDE - SERUM 99 mmol/L (98-107); CREATININE - SERUM 0.8 mg/dL (0.6-1.3); GLUCOSE 118 mg/dL (74-106); POTASSIUM - SERUM 3.9 mmol/L (3.5-5.1); PROTEIN - SERUM 7.3 g/dL (6.4-8.2); SODIUM 136 mmol/L (136-145); eGFR NON AFRICAN AMERICAN > 90 mL/min (90-120)
[2019-05-03 09:18] LABS: UREA NITROGEN 10 mg/dL (7-18)
[2019-05-03] MEDS ORDERED: PERCOCET 5-3251 TAB PO (10:41)
[2019-05-03] MEDS ORDERED: PLAVIX75 MG PO (11:20)
[2019-05-03] MEDS ORDERED: COZAAR50 MG PO (11:20)
[2019-05-03] MEDS ORDERED: AMIODARONE HCL200 MG PO (11:20)
[2019-05-03] MEDS ORDERED: LOPRESSOR25 MG PO (11:21)
[2019-05-03] MEDS ORDERED: ASPIRIN EC81 M1 PO (11:23)
[2019-05-03] MEDS ORDERED: K-DUR20 MEQ PO (11:24)
[2019-05-03] MEDS ORDERED: LASIX40 MG PO (11:25)
[2019-05-03] MEDS ORDERED: COLACE100 MG PO (11:26)
--- NOTE | 2019-05-03 11:41 | NUR ---
TPM WIRES AND JESS DRAIN DC'D PER ASHELY ADRIAN. DRESSING APPLIED. C/D/I.
--- NOTE | 2019-05-03 12:36 | NUR ---
PT ASSISTED OOB. LUNCH TRAY PROVIDED FOR THE PT.
--- NOTE | 2019-05-03 13:10 | MORECARE ---
CASE MANAGEMENT DISCHARGE SUMMARY PATIENT: NITO BONDS UNIT: [id number] ADM DATE: 04/26/19 AGE: 63 : 51 SEX: M [facility] AUTHOR: JANICE,DOC PHYSICIAN: REFERRING PHYSICIAN: TRENT RIOJAS MD DATE OF SERVICE: 05/03/19 Discharge Plan Patient Name: NITO BONDS Facility: [facility]:[place] : 1955 Planned Disposition: Home Anticipated Discharge Date: Discharge Date: Expected LOS: Initial Reviewer: [email or web address] Initial Review Date: 04/26/2019 Generated: 05/03/19 2:10 pm Comments DCP- Discharge Planning Updated by [email or web address]: Catherine Anguiano on 05/02/19 5:[address] CM EXPLAINED AND SERVED D/C IMM 05/02/19 @ 1800. PATIENT IS CURRENTLY SITTING UP IN CHAIR ON RA WITH 02 SAT 97%. DENIES ANY DISCHARGE NEEDS. CM will continue to follow and assist as needed with discharge planning / needs. DCP- Discharge Planning Updated by [id number]: Catherine Anguiano on 04/26/19 6:[address] Patient Name: NITO BONDS Admission Status: Elective Accout number: [id number] Admission Date: 04-26-2019 : 1955 Admission Diagnosis: Attending: TRENT RIOJAS Current LOS: 1 Anticipated DC Date: Planned Disposition: Home Primary Insurance: MEDICARE A & B Discharge Planning Comments: CM met with patient at bedside after explaining CM role and obtaining verbal consent. Patient lives at home alone and plans to return there upon discharge. CM discussed availability / needs of home health and medical equipment. Patient denies any discharge needs at this time. Patient states he will have his drive him home upon discharge. CM will continue to follow and assist as needed with discharge planning / needs. Inside Sales: Catherine Anguiano DCPIA - Discharge Planning Initial Assessment Updated by [email or web address]: Catherine Anguiano on 04/26/19 7:40 pm * Is the patient Alert and Oriented? Yes * How many steps to enter\exit or inside your home? * PCP Yvonne Hadley [facility] * Pharmacy [facility] * Preadmission Environment Home Alone * ADLs Independent * Other Equipment B/P monitor * List name and contact numbers for known caregivers / representatives who currently or will assist patient after discharge: Carrie Bonds - ex-- [phone] * Verbal permission to speak to the caregivers and representatives has been obtained from the patient. N/A * Community resources currently utilized None * Additional services required to return to the preadmission environment? No * Can the patient safely return to the preadmission environment? Yes * Has this patient been hospitalized within the prior 30 days at any hospital? No External Providers External Provider: OTHER-OTHER Next Contact Date: Service Request Date: Service Type: Resolution: Reviewer: Comments: Coverage Notice Reviewer: [id number] - Catherine Anguiano Notice Issued Date-Time: 05/02/2019 18:03 Notice Type: IM Discharge Notice Notice Delivered To: Patient Relationship to Patient: Self Ophthalmic Lens Inspector Name: Delivery Method: HAND - Hand Delivered Rowena Days: Prior Verbal Notification: Recipient Understood Notice: Yes Recipient Signature: Yes Med Rec Note Co-signed by Attending: Coverage Notice Comment: Last DP export: 05/02/19 5:15 p Patient Name: NITO BONDS Page [id number] at 1310 All edits/amendments must be made on the electronic document DICTATION DATE: 05/03/19 131 TUBE BLOWER: PONCHO 05/03/19 1310 RPT#: [id number] DC DATE: STATUS: ADM IN [facility] [address] [place] [address] END OF REPORT
--- NOTE | 2019-05-03 13:18 | MORECARE ---
CASE MANAGEMENT DISCHARGE SUMMARY PATIENT: NITO BONDS UNIT: [id number] ADM DATE: 04/26/19 AGE: 63 : 51 SEX: M [facility] AUTHOR: JANICEDOC PHYSICIAN: REFERRING PHYSICIAN: TRENT RIOJAS MD DATE OF SERVICE: 05/03/19 Discharge Plan Patient Name: NITO BONDS Facility: [facility]:[place] : 1955 Planned Disposition: Home Anticipated Discharge Date: Discharge Date: Expected LOS: Initial Reviewer: [id number] Initial Review Date: 04/26/2019 Generated: 05/03/19 2:17 pm Comments DCP- Discharge Planning Updated by [email or web address]: Catherine Anguiano on 05/03/19 12:[address] CM notified patient needing sleep study in 6-[address] Magallanes. CM called [facility] [phone] fax [phone] and spoke with Marcelina. Sleep Study scheduled July 07 @ 7pm. Marcelina stated they would contact patient to verify information. CM faxed demographic sheet to Marcelina. CM will continue to follow and assist as needed with discharge planning / needs. DCP- Discharge Planning Updated by [email or web address]: Catherine Anguiano on 05/02/19 5:[address] CM EXPLAINED AND SERVED D/C IMM 05/02/19 @ 1800. PATIENT IS CURRENTLY SITTING UP IN CHAIR ON RA WITH 02 SAT 97%. DENIES ANY DISCHARGE NEEDS. CM will continue to follow and assist as needed with discharge planning / needs. DCP- Discharge Planning Updated by [id number]: Catherine Anguiano on 04/26/19 6:[address] Patient Name: NITO BONDS Admission Status: Elective Accout number: [id number] Admission Date: 04-26-2019 : 1955 Admission Diagnosis: Attending: TRENT RIOJAS Current LOS: 1 Anticipated DC Date: Planned Disposition: Home Primary Insurance: MEDICARE A & B Discharge Planning Comments: CM met with patient at bedside after explaining CM role and obtaining verbal consent. Patient lives at home alone and plans to return there upon discharge. CM discussed availability / needs of home health and medical equipment. Patient denies any discharge needs at this time. Patient states he will have his drive him home upon discharge. CM will continue to follow and assist as needed with discharge planning / needs. Rail Transportation Operator: Catherine Anguiano DCPIA - Discharge Planning Initial Assessment Updated by [email or web address]: Catherine Anguiano on 04/26/19 7:40 pm * Is the patient Alert and Oriented? Yes * How many steps to enter\exit or inside your home? * PCP Yvonne Angelo [facility] * Pharmacy [facility] * Preadmission Environment Home Alone * ADLs Independent * Other Equipment B/P monitor * List name and contact numbers for known caregivers / representatives who currently or will assist patient after discharge: Carrie Bonds - ex-- [phone] * Verbal permission to speak to the caregivers and representatives has been obtained from the patient. N/A * Community resources currently utilized None * Additional services required to return to the preadmission environment? No * Can the patient safely return to the preadmission environment? Yes * Has this patient been hospitalized within the prior 30 days at any hospital? No Coverage Notice Reviewer: [id number] - Catherine Anguiano Notice Issued Date-Time: 05/02/2019 18:03 Notice Type: IM Discharge Notice Notice Delivered To: Patient Relationship to Patient: Self Panel Assembler Name: Delivery Method: HAND - Hand Delivered Rowena Days: Prior Verbal Notification: Recipient Understood Notice: Yes Recipient Signature: Yes Med Rec Note Co-signed by Attending: Coverage Notice Comment: Last DP export: 05/03/19 12:10 p Patient Name: NITO BONDS Page [id number] at 1318 All edits/amendments must be made on the electronic document DICTATION DATE: 05/03/19 1317 CENTER DIRECTOR: PONCHO 05/03/19 1317 RPT#: [id number] DC DATE: STATUS: ADM IN [facility] [address] [place] [address] END OF REPORT
--- NOTE | 2019-05-03 15:29 | NUR ---
ASHELY ADRIAN WENT OVER DC INSTRUCTIONS WITH THE PT AND HIS EX . NO QUESTIONS AT THIS TIME. IV DC'D WITH THE CATHETER TIP INTACT. WILL CONT POC
--- NOTE | 2019-05-03 16:22 | NUR ---
PT DC INSTRUCTIONS WENT OVER WITH THE PT. PT HAS NO QUESTIONS AT THIS TIME. ALL BELONINGS ACCOUNTED FOR. PT LEFT WITH HIS EX . LEFT IN A STABLE CONDITION.
--- NOTE | 2019-05-04 09:16 | MORECARE ---
CASE MANAGEMENT DISCHARGE SUMMARY PATIENT: NITO BONDS UNIT: [id number] ADM DATE: 04/26/19 AGE: 63 : 51 SEX: M [facility]: [facility] AUTHOR: JANICEDOC PHYSICIAN: REFERRING PHYSICIAN: TRENT RIOJAS MD DATE OF SERVICE: 05/04/19 Discharge Plan Patient Name: NITO BONDS Facility: [facility]:[place] : 1955 Planned Disposition: Home Anticipated Discharge Date: Discharge Date: 05/03/2019 Expected LOS: Initial Reviewer: [email or web address] Initial Review Date: 04/26/2019 Generated: 05/04/19 10:16 am Comments DCP- Discharge Planning Updated by [email or web address]: Catherine Anguiano on 05/03/19 12:[address] CM notified patient needing sleep study in 6-[address] Magallanes. CM called [facility] [phone] fax [phone] and spoke with Marcelina. Sleep Study scheduled July 07 @ 7pm. Marcelina stated they would contact patient to verify information. CM faxed demographic sheet to Marcelina. CM will continue to follow and assist as needed with discharge planning / needs. DCP- Discharge Planning Updated by [email or web address]: Catherine Anguiano on 05/02/19 5:[address] CM EXPLAINED AND SERVED D/C IMM 05/02/19 @ 1800. PATIENT IS CURRENTLY SITTING UP IN CHAIR ON RA WITH 02 SAT 97%. DENIES ANY DISCHARGE NEEDS. CM will continue to follow and assist as needed with discharge planning / needs. DCP- Discharge Planning Updated by [id number]: Catherine Anguiano on 04/26/19 6:[address] Patient Name: NITO BONDS Admission Status: Elective Accout number: [id number] Admission Date: 04-26-2019 : 1955 Admission Diagnosis: Attending: TRENT RIOJAS Current LOS: 1 Anticipated DC Date: Planned Disposition: Home Primary Insurance: MEDICARE A & B Discharge Planning Comments: CM met with patient at bedside after explaining CM role and obtaining verbal consent. Patient lives at home alone and plans to return there upon discharge. CM discussed availability / needs of home health and medical equipment. Patient denies any discharge needs at this time. Patient states he will have his drive him home upon discharge. CM will continue to follow and assist as needed with discharge planning / needs. Venereal Disease Investigator: Catherine Anguiano DCPIA - Discharge Planning Initial Assessment Updated by [email or web address]: Catherine Anguaino on 04/26/19 7:40 pm * Is the patient Alert and Oriented? Yes * How many steps to enter\exit or inside your home? * PCP Yvonne Angelo [facility] * Pharmacy [facility] * Preadmission Environment Home Alone * ADLs Independent * Other Equipment B/P monitor * List name and contact numbers for known caregivers / representatives who currently or will assist patient after discharge: Carrie Bonds - ex-- [phone] * Verbal permission to speak to the caregivers and representatives has been obtained from the patient. N/A * Community resources currently utilized None * Additional services required to return to the preadmission environment? No * Can the patient safely return to the preadmission environment? Yes * Has this patient been hospitalized within the prior 30 days at any hospital? No Coverage Notice Reviewer: [id number] - Catherine Anguiano Notice Issued Date-Time: 05/02/2019 18:03 Notice Type: IM Discharge Notice Notice Delivered To: Patient Relationship to Patient: Self Layboy Operator Name: Delivery Method: HAND - Hand Delivered Rowena Days: Prior Verbal Notification: Recipient Understood Notice: Yes Recipient Signature: Yes Med Rec Note Co-signed by Attending: Coverage Notice Comment: Last DP export: 05/03/19 12:18 p Patient Name: NITO BONDS Page 71304 at 0916 All edits/amendments must be made on the electronic document DICTATION DATE: 05/04/19914 DISTRIBUTION CENTER SUPERVISOR: PONCHO 05/04/19914 RPT#: [id number] DC DATE:05/03/19 STATUS: DIS IN [facility] [address] [place] [address] END OF REPORT
== END 2019-05-03 16:30 | disposition home or self-care (01) | DRG 233 ==
LOC: D.CATH 10:36 → D.CVICU 15:30 → D.CATH 15:31 → D.CVICU 15:31
PROVIDERS: Internal Medicine Pulmonary Disease; Thoracic Surgery (Cardiothoracic Vascular Surgery); ADMIT Internal Medicine Interventional Cardiology; ATTEND Internal Medicine Interventional Cardiology
PROC: B2111ZZ Fluoroscopy of Multiple Coronary Arteries using Low Osmolar Contrast (ICD-10-PCS; 2019-04-26)
PROC: B2151ZZ Fluoroscopy of Left Heart using Low Osmolar Contrast (ICD-10-PCS; 2019-04-26)
PROC: 4A023N7 Measurement of Cardiac Sampling and Pressure, Left Heart, Percutaneous Approach (ICD-10-PCS; 2019-04-26)
PROC: 021109W Bypass Coronary Artery, Two Arteries from Aorta with Autologous Venous Tissue, Open Approach (ICD-10-PCS; 2019-04-27)
PROC: 06BP4ZZ Excision of Right Saphenous Vein, Percutaneous Endoscopic Approach (ICD-10-PCS; 2019-04-27)
PROC: 025 Heart and Great Vessels, Destruction (ICD-10-PCS; 2019-04-27)
PROC: 025 Heart and Great Vessels, Destruction (ICD-10-PCS; 2019-04-27)
PROC: 02L70ZK Occlusion of Left Atrial Appendage, Open Approach (ICD-10-PCS; 2019-04-27)
PROC: B24BZZ4 Ultrasonography of Heart with Aorta, Transesophageal (ICD-10-PCS; 2019-04-27)
PROC: 5A1221Z Performance of Cardiac Output, Continuous (ICD-10-PCS; 2019-04-27)
PROC: 02100Z9 Bypass Coronary Artery, One Artery from Left Internal Mammary, Open Approach (ICD-10-PCS; principal; 2019-04-27 07:30)
DX: I25.10 Atherosclerotic heart disease of native coronary artery without angina pectoris (principal); J96.01 Acute respiratory failure with hypoxia; G47.33 Obstructive sleep apnea (adult) (pediatric); K21.9 Gastro-esophageal reflux disease without esophagitis; I10 Essential (primary) hypertension; D72.829 Elevated white blood cell count, unspecified; L40.9 Psoriasis, unspecified; M19.90 Unspecified osteoarthritis, unspecified site; I48.91 Unspecified atrial fibrillation; J32.9 Chronic sinusitis, unspecified

== ENCOUNTER → 2019-06-15 09:05 | Outpatient (CLI) | payer MEDICARE, BC ==
[2019-04-30 17:58] VITALS: BMI 35.3
[~2019-06-15 09:05] MED LIST: AMIODARONE HCL200 MG PO; ASPIRIN EC81 M1 PO; BETAPACE 80 MG80 MG PO; COLACE100 MG PO; COZAAR50 MG PO; K-DUR20 MEQ PO; LASIX40 MG PO; LOPRESSOR25 MG PO; LOTREL 5/10 MG1 CAP PO; PERCOCET 5-3251 TAB PO; PLAVIX75 MG PO; PROTONIX40 MG PO; STELARA SQ; VALIUM10 MG PO
[2019-06-15 10:02] LABS: HEMATOCRIT 46.9 % (42.0-54.0); HEMOGLOBIN 15.7 g/dL (13.5-17.5); MCH 30.9 pg (26.0-34.0); MCHC 33.5 g/dL (31.0-37.0); MCV 92.3 fL (80.0-100.0); MEAN PLATELET VOLUME 10.5 fL (7.4-10.4); RBC 5.08 10x6/uL (4.20-6.10); RDW 13.6 % (11.5-14.5); WBC 7.1 10x3/uL (4.8-10.8)
[2019-06-15 10:21] LABS: ALBUMIN 3.8 g/dL (3.4-5.0); ALKALINE PHOSPHATASE 85 U/L (46-116); ALT (SGPT) 31 U/L (10-68); BILIRUBIN - TOTAL 0.51 mg/dL (0.2-1.3); CALC OSMOLALITY 278 mosm/kg (275-300); CALCIUM 8.6 mg/dL (8.5-10.1); CARBON DIOXIDE 30.7 mmol/L (21.0-32.0); CHLORIDE - SERUM 103 mmol/L (98-107); CREATININE - SERUM 0.9 mg/dL (0.6-1.3); GLUCOSE 92 mg/dL (74-106); POTASSIUM - SERUM 4.7 mmol/L (3.5-5.1); PROTEIN - SERUM 7.6 g/dL (6.4-8.2); SODIUM 140 mmol/L (136-145); UREA NITROGEN 12 mg/dL (7-18); eGFR NON AFRICAN AMERICAN 90 mL/min (90-120)
== END | disposition home or self-care (01) ==
LOC: D.LAB 08:00 → D.CN 09:00 → D.LAB 09:05 → D.CN 09:30
PROVIDERS: ATTEND Thoracic Surgery (Cardiothoracic Vascular Surgery)
DX: D64.9 Anemia, unspecified (principal); J91.8 Pleural effusion in other conditions classified elsewhere; I48.91 Unspecified atrial fibrillation

== ENCOUNTER 2019-07-25 16:20 | Emergency (ER) | payer MEDICARE, BC ==
[~2019-07-25] VITALS: Ht 182.9 cm; Wt 120.5 kg
[2019-07-25 16:27] VITALS: Ht 182.9 cm; Wt 120.5 kg
[2019-07-25 16:52] LABS: BASOPHILS 0.2 % (0-2); EOSINOPHILS 3.6 % (0-7); HEMATOCRIT 44.8 % (42.0-54.0); HEMOGLOBIN 15.5 g/dL (13.5-17.5); IMMATURE GRANULOCYTES 0.5 % (0-5); LYMPHOCYTES 13.7 % (15-50); MCH 30.8 pg (26.0-34.0); MCHC 34.6 g/dL (31.0-37.0); MCV 88.9 fL (80.0-100.0); MEAN PLATELET VOLUME 10.1 fL (7.4-10.4); MONOCYTES 9.9 % (2-11); NEUTROPHILS 72.1 % (40-80); PLATELET COUNT 204 10x3/uL (130-400); RBC 5.04 10x6/uL (4.20-6.10); RDW 13.5 % (11.5-14.5); WBC 12.8 10x3/uL (4.8-10.8)
[2019-07-25 17:02] LABS: APTT 30.5 SECONDS (22.8-39.4); INR 1.02 (0.85-1.17); PROTIME 12.9 SECONDS (11.6-15.0)
[2019-07-25 17:05] LABS: ALBUMIN 3.4 g/dL (3.4-5.0); ALKALINE PHOSPHATASE 82 U/L (46-116); ALT (SGPT) 27 U/L (10-68); BILIRUBIN - TOTAL 0.39 mg/dL (0.2-1.3); CALC OSMOLALITY 278 mosm/kg (275-300); CALCIUM 8.7 mg/dL (8.5-10.1); CHLORIDE - SERUM 101 mmol/L (98-107); CREATININE - SERUM 0.9 mg/dL (0.6-1.3); GLUCOSE 109 mg/dL (74-106); POTASSIUM - SERUM 3.8 mmol/L (3.5-5.1); PROTEIN - SERUM 7.5 g/dL (6.4-8.2); SODIUM 139 mmol/L (136-145); UREA NITROGEN 13 mg/dL (7-18); eGFR NON AFRICAN AMERICAN 90 mL/min (90-120)
[2019-07-25 17:17] LABS: CKMB 0.8 U/L (0.0-3.6); CREATINE KINASE 72 UL (21-232); MAGNESIUM - SERUM 1.8 mg/dL (1.8-2.4); TROPONIN-I < 0.017 ng/mL (0.000-0.060)
[2019-07-25 19:57] VITALS: BP 168/102
== END 2019-07-25 19:58 | disposition home or self-care (01) ==
LOC: D.ER 16:20
PROVIDERS: Family Medicine
DX: M94.0 Chondrocostal junction syndrome [Tietze] (principal); I25.10 Atherosclerotic heart disease of native coronary artery without angina pectoris; I10 Essential (primary) hypertension; I48.91 Unspecified atrial fibrillation; K21.9 Gastro-esophageal reflux disease without esophagitis

== ENCOUNTER → 2019-08-03 09:10 | Outpatient (CLI) | payer MEDICARE, BC ==
[2019-07-25 16:27] VITALS: BMI 36.0
--- NOTE | 2019-08-05 12:52 | EC ---
PATIENT:NITO COLEMNA DATE OF SERVICE: 08/03/19 SEX: M MEDICAL RECORD: [id number] DATE OF : [birth year] [facility] AGE OF PATIENT: 64 ADMISSION DATE: 08/03/19 REFERRING PHYSICIAN: INTERPRETING PHYSICIAN: TRENT RIOJAS MD ECHOCARDIOGRAM REPORT ECHO CHARGES 4 ECHO COMPLETE Date: 08/03/19 CLINICAL DIAGNOSIS: HTN/CARDIOMYOPATHY H/O CAD/CABG/A-FIB ECHOCARDIOGRAPHIC MEASUREMENTS (adult normal given) AC root (d.<3.7cm) 3.9 cm LV Septum d (<1.2 cm> 1.4 cm Valve Excursion 2.3 cm LV Septum (systole) 2.0 cm Left Atria (s.<4.0cm> 4.8 cm LVPW d(<1.2cm) 1.4 cm RV (d.<2.3cm) 2.3 cm LVPW (sytole) 1.9 cm LV diastole(<5.6CM) 7.3 cm MV E-F(>70mm/sec) cm LV systole 5.2 cm LVOT Diameter 2.2 cm MV exc.(>10mm) cm Est.ejection fraction (50-75%) % DOPPLER: LVIT cm/sec A 93.0 cm/sec E 119 cm/sec LA cm/sec RVSP 29.0 mmHg LVOT 93.0 cm/sec AOP1/2T m/s Asc. Ao 117 cm/sec RVOT 61.0 cm/sec RA cm/sec PA 82.0 cm/sec AV Gradient Peak 5.5 mmHg AV Mean 2.6 mmHg AV Area 3.8 cm MV Gradient Peak 6.3 mmHg MV Mean 2.5 mmHg MV Area cm COMMENTS: OP - HC Assembler Crimper: 1 ANDREI ORSALES Produce Inspector: 3 Dr. Brown TAPE# PACS Pericardial Effusion N DATE OF SERVICE: Adequate 2D echo, Color Flow, Spectral Doppler, and M-mode LVH is present. LV internal dimensions are dilated at 7.3 cm, LV is mildly globally hypo with EF mildly reduced at 40% to 45%. Aortic valve with sclerosis without stenosis by Doppler interrogation. Left atrium likewise dilated at 4.8 cm. Mitral valve is thickened. [id number] MR. Right-sided chambers are grossly normal. Mild TR. ECHOCARDIOGRAM REPORT [id number] NITO COLEMAN TRANSINT:[id number] Voice Confirmation ID: [id number] DOCUMENT ID: [id number] TRENT RIOJAS MD at 1252 CC: [id number] DICTATION DATE: 08/04/19 161 FRONT END ASSISTANT: 08/04/19 2344 DEP CLI 08/03/19 [facility] [address] [place] [id number]
== END | disposition home or self-care (01) ==
LOC: D.HCCECHO 09:10 → D.HCCARDIO 10:00 → D.HCCECHO 10:00
PROVIDERS: ATTEND Internal Medicine Interventional Cardiology
DX: I42.9 Cardiomyopathy, unspecified (principal)

== ENCOUNTER → 2020-01-11 09:36 | Outpatient (CLI) | payer MEDICARE, BC ==
[2019-07-25 16:27] VITALS: BMI 36.0
== END | disposition home or self-care (01) ==
LOC: D.US 09:36
PROVIDERS: ATTEND Internal Medicine Interventional Cardiology
DX: R20.2 Paresthesia of skin (principal); T82.898A Other specified complication of vascular prosthetic devices, implants and grafts, initial encounter

== ENCOUNTER 2020-08-18 09:47 | Emergency (ER) | payer MEDICARE, BC ==
[2020-08-18 09:51] VITALS: Ht 182.9 cm
[2020-08-18] MEDS ORDERED: TYLENOL W/CODEI1 TAB PO (10:32)
[2020-08-18 11:02] VITALS: BP 169/106
== END 2020-08-18 11:03 | disposition home or self-care (01) ==
LOC: D.ER 09:47
DX: M25.561 Pain in right knee (principal); S83.91XA Sprain of unspecified site of right knee, initial encounter; X58.XXXA Exposure to other specified factors, initial encounter; I10 Essential (primary) hypertension; K21.9 Gastro-esophageal reflux disease without esophagitis

== ENCOUNTER 2021-04-25 08:51 | Emergency (ER) | payer MEDICARE, BC ==
[~2021-04-25] VITALS: Ht 182.9 cm; Wt 120.5 kg
[~2021-04-25 08:51] MED LIST changes: +LYRICA75 MG; +TOPROL XL100 MG PO; +TYLENOL W/CODEI1 TAB PO
[2021-04-25 09:02] VITALS: BP 172/124; Ht 182.9 cm; Wt 120.5 kg
[2021-04-25 09:36] LABS: BASOPHILS 1.3 % (0-2); EOSINOPHILS 1.9 % (0-7); HEMATOCRIT 47.2 % (42.0-54.0); HEMOGLOBIN 15.7 g/dL (13.5-17.5); LYMPHOCYTES 17.4 % (15-50); MCH 30.1 pg (26.0-34.0); MCHC 33.3 g/dL (31.0-37.0); MCV 90.4 fL (80.0-100.0); MEAN PLATELET VOLUME 8.3 fL (7.4-10.4); MONOCYTES 8.2 % (2-11); NEUTROPHILS 71.2 % (40-80); RBC 5.22 10x6/uL (4.20-6.10); RDW 13.6 % (11.5-14.5); WBC 11.9 10x3/uL (4.8-10.8)
[2021-04-25 09:37] LABS: CALC OSMOLALITY 271 mosm/kg (275-300); CALCIUM 9.1 mg/dL (8.5-10.1); CARBON DIOXIDE 24.9 mmol/L (21.0-32.0); CHLORIDE - SERUM 98 mmol/L (98-107); CREATININE - SERUM 0.9 mg/dL (0.6-1.3); GLUCOSE 109 mg/dL (74-106); POTASSIUM - SERUM 4.1 mmol/L (3.5-5.1); SODIUM 135 mmol/L (136-145); UREA NITROGEN 16 mg/dL (7-18); eGFR NON AFRICAN AMERICAN 89 mL/min (90-120)
[2021-04-25 09:38] LABS: PLATELET COUNT 312 10x3/uL (130-400)
[2021-04-25 09:47] LABS: ALBUMIN 3.9 g/dL (3.4-5.0); ALKALINE PHOSPHATASE 58 U/L (30-120); ALT (SGPT) 30 U/L (10-68); BILIRUBIN - TOTAL 0.39 mg/dL (0.2-1.3); LIPASE 79 U/L (73-393); PROTEIN - SERUM 7.8 g/dL (6.4-8.2)
[2021-04-25 09:48] LABS: TROPONIN-I < 0.017 ng/mL (0.000-0.060)
[2021-04-25 11:28] LABS: BILIRUBIN NEGATIVE (NEGATIVE); KETONE NEGATIVE (NEGATIVE); NITRITE NEGATIVE (NEGATIVE); UROBILINOGEN NORMAL mg/dL (< 2)
== END 2021-04-25 12:16 | disposition home or self-care (01) ==
LOC: D.ER 08:51
PROVIDERS: Emergency Medicine
DX: K59.01 Slow transit constipation (principal); K59.9 Functional intestinal disorder, unspecified; I10 Essential (primary) hypertension; Z95.1 Presence of aortocoronary bypass graft